=== PATIENT | male | born 1960 | race African-American/Black ===

== ENCOUNTER 2018-10-07 17:57 | Emergency (ER) | payer BC, OTHER ==
--- NOTE | 2018-10-07 18:06 | PDOC ---
Rapid Medical Evaluation Chief Complaint: Hematuria Time Seen by Provider: 10/07/18 18:05 Medical Evaluation: 10/07/18 18:05 I have performed a brief in-person evaluation of this patient. The patient presents with a chief complaint of: Hematuria and right flank pain. Pertinent physical exam findings: Alert and oriented, no distress. I have ordered the following: UA/culture The patient will proceed to the ED for further evaluation. Discharge Disposition - Diagnosis Hematuria Qualifiers: Hematuria type: gross Qualified Code(s): R31.0 - Gross hematuria - Discharge Dispostion Condition at time of disposition: Stable - Referrals - Patient Instructions - Post Discharge Activity
[2018-10-07 18:07] VITALS: BP 131/71; PULSE 89; TEMP 98.4; BMI 30.1
--- NOTE | 2018-10-07 19:45 | PDOC ---
History of Present Illness - General Chief Complaint: Hematuria Stated Complaint: HEMATURIA Time Seen by Provider: 10/07/18 18:05 History Source: Patient Exam Limitations: No Limitations - History of Present Illness Initial Comments: 58 yo M with a hx of HTN and DM presents to the emergency department with hemturia that has been ongoing since yesterday. Per the patient, he was lifting sheet rock up a stair case, made an unexpected adjustment, and felt a "pinch" in his lower right back and had a sudden urge to urinate. When he urinated, there was bright red blood streaks without clots. He had normal urinations episodes since then until this afternoon when he felt a burning sensation followed by hematuria red blood. Currently, he has right lower back pain that is sharp in nature, 7/10, non radiating, and worsens with coughing. Per the patient, he recently took antibiotics (unknown kind) for an URI and subsequently developed a "yeast" infection on his penis that he took antibiotics for 7 days (finished 4 days ago). Denies pain, persistence of infection, and erythema on the penis. Denies the following: fever, chills, nausea, vomiting, chest pain, SOB, abdominal pain, dysuria, diarrhea, hematochezia, and leg pain/swelling. Shx: Left hernia repair Meds: Metformin, aspirin Allergies: NKDA Social: Endorses tobacco use. Denies alcohol and substance abuse. Past History - Past Medical History Allergies/Adverse Reactions: Allergies Allergy/AdvReac Type Severity Reaction Status Date / Time No Known Allergies Allergy Verified 10/07/18 18:07 Home Medications: Ambulatory Orders Nicotine [Nicotine Patch 21 mg/24 hr] 1 each TD DAILY #14 patch.td24 10/07/18 levoFLOXacin [Levaquin] 750 mg PO DAILY #7 tab 10/07/18 COPD: No Diabetes: Yes - Surgical History Gastric Stapling: No Lung Surgery: No - Immunization History Immunization Up to Date: No - Suicide/Smoking/Psychosocial Hx Smoking History: Never smoked Have you smoked in the past 12 months: No Information on smoking cessation initiated: No Hx Alcohol Use: No Drug/Substance Use Hx: No *Physical Exam - Vital Signs Last Vital Signs Temp Pulse Resp BP Pulse Ox 98.4 F 89 18 131/71 100 10/07/18 18:04 10/07/18 18:04 10/07/18 18:04 10/07/18 18:04 10/07/18 18:04 Moderate Sedation - Procedure Monitoring Vital Signs: Procedure Monitoring Vital Signs Temperature 98.4 F 10/07/18 18:04 Pulse Rate 89 10/07/18 18:04 Respiratory Rate 18 10/07/18 18:04 Blood Pressure 131/71 10/07/18 18:04 O2 Sat by Pulse Oximetry (%) 100 10/07/18 18:04 ED Treatment Course - LABORATORY CBC & Chemistry Diagram: 10/07/18 08:12 10/07/18 08:12 *DC/Admit/Observation/Transfer Diagnosis at time of Disposition: Hematuria Qualifiers: Hematuria type: gross Qualified Code(s): R31.0 - Gross hematuria - Discharge Dispostion Condition at time of disposition: Stable - Prescriptions Prescriptions: levoFLOXacin [Levaquin] 750 mg PO DAILY #7 tab Nicotine [Nicotine Patch 21 mg/24 hr] 1 each TD DAILY #14 patch.td24 - Referrals Referrals: ON STAFF,NOT [Primary Care Provider] - [facility] [place] [facility] [Provider Group] Stephen Nguyen MD [Staff Physician] - Vianey Daly MD [Staff Physician] - - Patient Instructions Printed Discharge Instructions: DI for Urinary Tract Infection (UTI) Additional Instructions: you were seen in the emergency department for your blood in the urine. your urine showed an infection and CT showed an infection near the kidney as well as the seminal vesicles. we spoke to Dr. Nguyen who recommends you take the levaquin antibiotics and follow up in his office within 72 hours after discharge. please follow up with your primary medical doctor within 1 week after discharge. please take your medications as prescribed. please return to the emergency department if you have worsening symptoms or new concerning symptoms such as fever, nausea and vomiting, and more amount of blood in the urine. thank you. - Post Discharge Activity Forms/Work/School Notes: Back to Work
[2018-10-07 19:54] LABS: URINE APPEARANCE CLEAR; URINE BILIRUBIN NEGATIVE (<2.0 mg/dL); URINE COLOR LTYELLOW; URINE GLUCOSE (UA) 2+ (NEGATIVE); URINE KETONE NEGATIVE (NEGATIVE); URINE LEUK ESTERASE 2+ (NEGATIVE); URINE NITRITE NEGATIVE (NEGATIVE); URINE PROTEIN 1+ (NEGATIVE)
[2018-10-07 20:00] LABS: URINE MUCUS RARE
--- NOTE | 2018-10-07 20:15 | PDOC ---
Attending Attestation - HPI HPI: 10/07/18 20:38 Patient is a 58 year old male with a significant past medical history of HTN and DM, who presents to the ED with complaints of hematuria that began yesterday afternoon. Patient reports lifting sheetrock yesterday afternoon while turning, stating he felt a pinching sensation in his lower back, followed by a urge to urinate. He reports experiencing bright red blood streaks within his urine, but denies a presence of clots. Patient reports urinating multiple times since with no episodes of hematuria since. He reports experiencing a sudden burning sensation followed an episode of hematuria this evening, prompting him to come into the ED for further evaluation. Patient reports currently experiencing right lower back pain that he states is a sharp non radiating 7/10 pain. Denies chest pain, Sob. Denies nausea, vomiting. Denies fevers, chills. Denies constipation, diarrhea. Denies trauma to affected area, loss of consciousness. Denies contact with sick individuals, out of state travelling. Denies any other symptoms. Allergies: None Social history: current smoker. No alcohol. No illicit drugs. Surgical: Left hernia repair PMD: not on staff. - Physicial Exam PE: 10/07/18 20:38 GENERAL: Awake, alert, and fully oriented, in no acute distress HEAD: No signs of trauma EYES: PERRLA, EOMI, sclera anicteric, conjunctiva clear ENT: Auricles normal inspection, hearing grossly normal, nares patent, oropharynx clear without exudates. Moist mucosa NECK: Normal ROM, supple, no lymphadenopathy, JVD, or masses LUNGS: Breath sounds equal, clear to auscultation bilaterally. No wheezes, and no crackles HEART: Regular rate and rhythm, normal S1 and S2, no murmurs, rubs or gallops ABDOMEN: Soft, nontender, normoactive bowel sounds. No guarding, no rebound. No masses EXTREMITIES: Normal range of motion, no edema. No clubbing or cyanosis. No cords, erythema, or tenderness NEUROLOGICAL: Cranial nerves II through XII grossly intact. Normal speech, normal gait SKIN: Warm, Dry, normal turgor, no rashes or lesions noted. <Elmo Lynch - Last Filed: 10/07/18 20:38> - Resident Resident Name: Michael Joshi - ED Attending Attestation I have performed the following: I have examined & evaluated the patient, The case was reviewed & discussed with the resident, I agree w/resident's findings & plan, Exceptions are as noted - Critical Care Time Total Critical Care Time: 35 Critical Care Statement: The care of this patient involved high complexity decision making to prevent further life threatening deterioration of the patient 's condition and/or to evaluate & treat vital organ system(s) failure or risk of failure. - Medical Decision Making 10/07/18 20:15 I, Dr. Romy Landers, DO, attest that this document has been prepared under my direction and personally reviewed by me in its entirety. I further attest, that it accurately reflects all work, treatment, procedures and medical decision -making performed by me. 10/07/18 20:43 a/p: 58yo male with 2 episodes of hematuria today after carrying sheet rock up the stairs -no flank pain -no dysuria -no clots -no hesitancy or difficulty passing his urine -will send labs, ua, ct abd/pelvis -poss renal stone that moved -will monitor and reassess 10/07/18 22:26 resident discussed the case with Dr. Locke recommends levaquin and follow up in the office 10/07/18 22:50 pt feeling better and requesting to go home <Romy Landers - Last Filed: 10/07/18 22:51>
[2018-10-07 20:17] LABS: BASO % 1.5 % (0-2.0); EOS % 2.4 % (0-4.5); HEMATOCRIT 36.5 % (35.4-49); HEMOGLOBIN 12.8 GM/dL (11.7-16.9); LYMPH % 27.3 % (8-40); MCH 30.1 pg (25.7-33.7); MCHC 34.9 g/dl (32.0-35.9); MEAN PLT VOLUME 7.6 fl (7.5-11.1); MONO % 7.7 % (3.8-10.2); NEUT % 61.1 % (42.8-82.8); PLATELET COUNT 303 K/MM3 (134-434); RBC 4.24 M/mm3 (4.00-5.60); RDW 14.2 % (11.9-15.9); WHITE BLOOD COUNT 9.7 K/mm3 (4.0-10.0)
[2018-10-07 22:28] LABS: ALBUMIN 3.5 g/dl (3.4-5.0); ALK PHOS 98 U/L (45-117); ANION GAP 10 MMOL/L (8-16); BILIRUBIN,TOTAL 0.3 mg/dL (0.2-1); BLOOD UREA NITROGEN 23 mg/dL (7-18); CALCIUM 8.9 mg/dL (8.5-10.1); CHLORIDE 108 mmol/L (98-107); CO2 25 mmol/L (21-32); POTASSIUM 4.3 mmol/L (3.5-5.1); SGOT/AST 15 U/L (15-37); SGPT/ALT 25 U/L (13-61); SODIUM 143 mmol/L (136-145)
[2018-10-07 22:31] LABS: GLUCOSE,RANDOM 306 mg/dL (74-106)
[2018-10-07] MEDS ORDERED: levoFLOXacin 750 MG TABLET PO ONE (23:04)
[2018-10-08] MEDS ORDERED: levoFLOXacin 750 MG TABLET PO ONE (22:49)
== END 2018-10-07 23:15 | disposition home or self-care (01) ==
LOC: JER 17:57
DX: N39.0 Urinary tract infection, site not specified (principal); R31.0 Gross hematuria
CPT/HCPCS: 36415; 74176-TC; 80053; 81003; 81015; 85025; 87086; 87186; 99281-25

== ENCOUNTER 2020-08-06 13:53 | Observation (INO) | payer OTHER ==
[2020-08-06] MEDS ORDERED: VANCOMYCIN 1 GM in D5W (PRE-DOCKED) 1,000 MG/250 ML IVPB ONE (16:10)
[2020-08-06] MEDS ORDERED: PIPERACILLIN/TAZOB 4.5 GM 4.5 GM in DEXTROSE 5%-WATER 100 ML IVPB ONE (16:10)
[2020-08-06] MEDS ORDERED: DIPHTH,PERTUSS(ACELL),TET 0.5 ML DISP.SYRIN IM ONE ×2 (16:22→17:36)
[2020-08-06 16:58] LABS: BASO % 0.4 % (0-2.0); EOS % 4.3 % (0-4.5); HEMATOCRIT 36.8 % (35.4-49); HEMOGLOBIN 12.6 GM/dL (11.7-16.9); LYMPH % 26.4 % (8-40); MCH 30.8 pg (25.7-33.7); MCHC 34.3 g/dl (32.0-35.9); MEAN PLT VOLUME 7.7 fl (7.5-11.1); MONO % 10.4 % (3.8-10.2); NEUT % 58.5 % (42.8-82.8); PLATELET COUNT 250 K/MM3 (134-434); RBC 4.08 M/mm3 (4.00-5.60); RDW 13.7 % (11.9-15.9); WHITE BLOOD COUNT 7.9 K/mm3 (4.0-10.0)
[2020-08-06 17:16] LABS: POTASSIUM 4.7 mmol/L (3.5-5.1)
[2020-08-06 17:18] LABS: CALCIUM 9.1 mg/dL (8.5-10.1)
[2020-08-06 17:19] LABS: ALBUMIN 3.7 g/dl (3.4-5.0); BLOOD UREA NITROGEN 22.1 mg/dL (7-18)
[2020-08-06 17:22] LABS: CREATININE 1.2 mg/dL (0.55-1.3)
[2020-08-06 17:23] LABS: BILIRUBIN,TOTAL 0.6 mg/dL (0.2-1); TOT PROT 7.4 g/dl (6.4-8.2)
[2020-08-06] MEDS ORDERED: PIPERACILLIN/TAZOB 4.5 GM 4.5 GM/100 ML BAG IVPB ONE (17:35)
[2020-08-06] MEDS ORDERED: VANCOMYCIN 1 GRAM (PRE-DOCKED) 1,000 MG/250 ML BAG IVPB ONE (17:35)
[2020-08-06] MEDS ORDERED: SODIUM CHLORIDE 0.9% 500 ML INFUS.BAG IV ONE (18:12)
[2020-08-06 21:39] LABS: ERYTHROCYTE SEDIMENTATION RATE 34 mm/hr (0-20)
[2020-08-06] MEDS ORDERED: INSULIN SLIDING SCALE (NOVOLOG) 1 VIAL SQ SCH (22:00)
[2020-08-06 23:43] VITALS: BP 132/77; PULSE 82; TEMP 98.2; BMI 33.3
== END 2020-08-07 00:38 | disposition home or self-care (01) ==
LOC: JER 13:53 → INTOOBSV 18:29 → JERBED 18:29 → J5S 20:41
PROVIDERS: ADMIT Internal Medicine; ATTEND Internal Medicine
PROC: 3E0234Z Introduction of Serum, Toxoid and Vaccine into Muscle, Percutaneous Approach (ICD-10-PCS; principal; 2020-08-06)
PROC: 3E013VG Introduction of Insulin into Subcutaneous Tissue, Percutaneous Approach (ICD-10-PCS; 2020-08-06)
PROC: 3E03329 Introduction of Other Anti-infective into Peripheral Vein, Percutaneous Approach (ICD-10-PCS; 2020-08-06)
PROC: 3E0337Z Introduction of Electrolytic and Water Balance Substance into Peripheral Vein, Percutaneous Approach (ICD-10-PCS; 2020-08-06)
DX: L08.9 Local infection of the skin and subcutaneous tissue, unspecified (principal); E13.42 Other specified diabetes mellitus with diabetic polyneuropathy; I10 Essential (primary) hypertension; M79.674 Pain in right toe(s); E66.9 Obesity, unspecified; Z68.33 Body mass index [BMI] 33.0-33.9, adult
CPT/HCPCS: 36415; 71046-TC-FY; 73630-TC-RT-FY; 73700-TC-RT; 80053; 82962; 85025; 85651; 86140; 87040; 87070; 87186; 87205; 90471; 90715; 93005; 93010; 96361; 96372; 96374; 99285-25; C9803; G0378; U0003

== ENCOUNTER 2022-02-25 13:33 | Inpatient (IN) | payer OTHER ==
[2022-02-25 13:41] VITALS: BMI 29.0
[2022-02-25 16:19] LABS: BASO % 0.5 % (0-2.0); EOS % 2.9 % (0-4.5); HEMATOCRIT 39.3 % (35.4-49); HEMOGLOBIN 13.3 GM/dL (11.7-16.9); LYMPH % 20.3 % (8-40); MCH 30.3 pg (25.7-33.7); MEAN CELL VOLUME 89.3 fl (80-96); MEAN PLT VOLUME 7.4 fl (7.5-11.1); MONO % 9.4 % (3.8-10.2); NEUT % 66.9 % (42.8-82.8); PLATELET COUNT 258 10^3/uL (134-434); RBC 4.39 M/mm3 (4.00-5.60); RDW 14.5 % (11.9-15.9); WHITE BLOOD COUNT 7.5 K/mm3 (4.0-10.0)
[2022-02-25] MEDS ORDERED: VANCOMYCIN 1 GM in D5W (PRE-DOCKED) 1,000 MG/250 ML IVPB ONE (16:35)
[2022-02-25] MEDS ORDERED: PIPERACILLIN/TAZOB 4.5 GM 4.5 GM in DEXTROSE 5%-WATER 100 ML IVPB ONE (16:36)
[2022-02-25 16:38] LABS: CALCIUM 8.9 mg/dL (8.5-10.1)
[2022-02-25 16:39] LABS: ALBUMIN 3.8 g/dl (3.4-5.0); BLOOD UREA NITROGEN 33.7 mg/dL (7-18)
[2022-02-25 16:42] LABS: CREATININE 1.7 mg/dL (0.55-1.3)
[2022-02-25 16:43] LABS: BILIRUBIN,TOTAL 0.4 mg/dL (0.2-1); TOT PROT 7.4 g/dl (6.4-8.2)
[2022-02-25] MEDS ORDERED: PIPERACILLIN/TAZOB 4.5 GM 4.5 GM/100 ML BAG IVPB ONE (16:43)
[2022-02-25] MEDS ORDERED: VANCOMYCIN 1 GRAM (PRE-DOCKED) 1,000 MG/250 ML BAG IVPB ONE (16:43)
[2022-02-25] MEDS ORDERED: SODIUM CHLORIDE 0.9% 500 ML INFUS.BAG IV ONE (16:54)
[2022-02-25 17:42] LABS: ERYTHROCYTE SEDIMENTATION RATE 22 mm/hr (0-20)
[2022-02-25] MEDS: SODIUM CHLORIDE 1,000 ML IV SCH (19:15)
[2022-02-25] MEDS ORDERED: HEPARIN NA (PORCINE) 5,000 UNITS/ML 1ML VIAL ONE (22:01)
[2022-02-25] MEDS: DOXYCYCLINE INJECTION 100 MG in DEXTROSE 5%-WATER 100 ML IVPB SCH (22:30)
[2022-02-25] MEDS: HEPARIN NA (PORCINE) 5,000 UNITS/ML 1ML VIAL SQ SCH (22:30)
[2022-02-25] MEDS: INSULIN (LEVEMIR) 100 UNITS/ML UNITS SQ SCH (22:30)
[2022-02-25] MEDS: INSULIN SLIDING SCALE (NOVOLOG) 1 VIAL SQ SCH (22:30)
[2022-02-26] MEDS ORDERED: PIPERACILLIN/TAZOB 3.375 GM 3.375 GM/50 ML BAG IVPB ONE (06:29)
[2022-02-26] MEDS: PIPERACILLIN/TAZOB 3.375 GM 3.375 GM in DEXTROSE 5%-WATER - 50 ML IVPB SCH ×3 (06:32→18:47)
[2022-02-26] MEDS ORDERED: HEPARIN NA (PORCINE) 5,000 UNITS/ML 1ML VIAL ONE (06:35)
[2022-02-26 06:50] LABS: BASO % 0.4 % (0-2.0); EOS % 3.9 % (0-4.5); HEMATOCRIT 39.6 % (35.4-49); HEMOGLOBIN 13.5 GM/dL (11.7-16.9); INR 1.02 (0.83-1.09); LYMPH % 25.1 % (8-40); MCH 30.3 pg (25.7-33.7); MCHC 34.2 g/dl (32.0-35.9); MEAN CELL VOLUME 88.8 fl (80-96); MEAN PLT VOLUME 7.3 fl (7.5-11.1); MONO % 8.9 % (3.8-10.2); NEUT % 61.7 % (42.8-82.8); PLATELET COUNT 249 10^3/uL (134-434); PROTHROMBIN TIME (PATIENT) 11.7 SEC (9.7-13.0); RBC 4.46 M/mm3 (4.00-5.60); RDW 14.4 % (11.9-15.9); WHITE BLOOD COUNT 7.5 K/mm3 (4.0-10.0)
[2022-02-26 06:53] LABS: ACTIVATED PTT 36.1 SECONDS (25.2-36.5)
[2022-02-26] MEDS: HEPARIN NA (PORCINE) 5,000 UNITS/ML 1ML VIAL SQ SCH ×3 (06:59→23:16)
[2022-02-26 07:15] LABS: ALBUMIN 3.4 g/dl (3.4-5.0); BLOOD UREA NITROGEN 26.6 mg/dL (7-18); MAGNESIUM 2.5 mg/dL (1.8-2.4)
[2022-02-26 07:18] LABS: CREATININE 1.2 mg/dL (0.55-1.3); PHOSPHOROUS 3.7 mg/dL (2.5-4.9)
[2022-02-26 07:20] LABS: BILIRUBIN,TOTAL 0.6 mg/dL (0.2-1); TOT PROT 6.9 g/dl (6.4-8.2)
[2022-02-26] MEDS: INSULIN SLIDING SCALE (NOVOLOG) 1 VIAL SQ SCH ×3 (08:18→17:08)
[2022-02-26] MEDS ORDERED: INSULIN (LEVEMIR) 100 UNITS/ML UNITS SQ ONE (08:23)
[2022-02-26 08:35] LABS: PH,URINE 5.5 (5.0-8.0); URINE APPEARANCE CLEAR; URINE BILIRUBIN NEGATIVE (NEGATIVE); URINE COLOR YELLOW; URINE GLUCOSE (UA) 3+ (NEGATIVE); URINE KETONE NEGATIVE (NEGATIVE); URINE LEUK ESTERASE NEGATIVE (NEGATIVE); URINE NITRITE NEGATIVE (NEGATIVE); URINE PROTEIN TRACE (NEGATIVE); URINE UROBILINOGEN 0.2 mg/dL (0.2-1.0)
[2022-02-26] MEDS: INSULIN (LEVEMIR) 100 UNITS/ML UNITS SQ SCH (09:30)
[2022-02-26] MEDS ORDERED: DOXYCYCLINE HYCLATE 100 MG VIAL ONE ×2 (10:19→23:09)
[2022-02-26] MEDS ORDERED: INSULIN (NOVOLOG) ASPART 100 UNITS/ML 10ML VIAL ONE (10:19)
[2022-02-26] MEDS ORDERED: DEXTROSE 5%-WATER 100 ML IVPB ONE (10:19)
[2022-02-26] MEDS: SODIUM CHLORIDE 1,000 ML IV SCH ×2 (10:30→18:47)
[2022-02-26] MEDS: DOXYCYCLINE INJECTION 100 MG in DEXTROSE 5%-WATER 100 ML IVPB SCH ×2 (10:31→23:16)
[2022-02-26] MEDS ORDERED: PIPERACILLIN/TAZOBACTAM 3.375 GM VIAL IVPB ONE (17:01)
[2022-02-26] MEDS ORDERED: DEXTROSE 5%-WATER - 50 ML IVPB ONE (17:01)
[2022-02-27] MEDS ORDERED: DEXTROSE 5%-WATER - 50 ML IVPB ONE ×3 (01:24→16:22)
[2022-02-27] MEDS ORDERED: PIPERACILLIN/TAZOBACTAM 3.375 GM VIAL IVPB ONE ×3 (01:24→16:22)
[2022-02-27] MEDS: PIPERACILLIN/TAZOB 3.375 GM 3.375 GM in DEXTROSE 5%-WATER - 50 ML IVPB SCH ×3 (01:39→17:24)
[2022-02-27] MEDS ORDERED: PIPERACILLIN/TAZOB 3.375 GM 3.375 GM in DEXTROSE 5%-WATER - 50 ML IVPB SCH (02:00)
[2022-02-27] MEDS: INSULIN (LEVEMIR) 100 UNITS/ML UNITS SQ SCH ×2 (06:18→21:28)
[2022-02-27] MEDS: INSULIN SLIDING SCALE (NOVOLOG) 1 VIAL SQ SCH ×4 (06:18→21:28)
[2022-02-27] MEDS: HEPARIN NA (PORCINE) 5,000 UNITS/ML 1ML VIAL SQ SCH ×3 (06:19→21:28)
[2022-02-27] MEDS: SODIUM CHLORIDE 1,000 ML IV SCH (08:06)
[2022-02-27 08:27] LABS: BASO % 0.5 % (0-2.0); EOS % 3.5 % (0-4.5); HEMATOCRIT 42.2 % (35.4-49); HEMOGLOBIN 14.3 GM/dL (11.7-16.9); LYMPH % 20.4 % (8-40); MCHC 33.9 g/dl (32.0-35.9); MEAN CELL VOLUME 88.7 fl (80-96); MEAN PLT VOLUME 7.1 fl (7.5-11.1); MONO % 8.7 % (3.8-10.2); NEUT % 66.9 % (42.8-82.8); PLATELET COUNT 267 10^3/uL (134-434); RBC 4.76 M/mm3 (4.00-5.60); RDW 14.2 % (11.9-15.9); WHITE BLOOD COUNT 7.2 K/mm3 (4.0-10.0)
[2022-02-27 08:48] LABS: CALCIUM 9.1 mg/dL (8.5-10.1)
[2022-02-27 08:49] LABS: BLOOD UREA NITROGEN 20.2 mg/dL (7-18)
[2022-02-27 08:52] LABS: CREATININE 1.1 mg/dL (0.55-1.3)
[2022-02-27] MEDS ORDERED: DEXTROSE 5%-WATER 100 ML IVPB ONE (10:15)
[2022-02-27] MEDS ORDERED: DOXYCYCLINE HYCLATE 100 MG VIAL ONE ×2 (10:15→21:21)
[2022-02-27] MEDS: DOXYCYCLINE INJECTION 100 MG in DEXTROSE 5%-WATER 100 ML IVPB SCH ×2 (10:30→21:28)
[2022-02-28] MEDS ORDERED: PIPERACILLIN/TAZOBACTAM 3.375 GM VIAL IVPB ONE ×2 (00:43→09:52)
[2022-02-28] MEDS ORDERED: DEXTROSE 5%-WATER - 50 ML IVPB ONE ×2 (00:43→09:52)
[2022-02-28] MEDS: PIPERACILLIN/TAZOB 3.375 GM 3.375 GM in DEXTROSE 5%-WATER - 50 ML IVPB SCH ×2 (01:04→09:58)
[2022-02-28] MEDS: HEPARIN NA (PORCINE) 5,000 UNITS/ML 1ML VIAL SQ SCH ×3 (06:15→22:23)
[2022-02-28] MEDS: INSULIN (LEVEMIR) 100 UNITS/ML UNITS SQ SCH ×2 (06:24→22:23)
[2022-02-28] MEDS: INSULIN SLIDING SCALE (NOVOLOG) 1 VIAL SQ SCH ×4 (06:24→22:23)
[2022-02-28] MEDS: LISINOPRIL 5 MG TABLET PO SCH (09:58)
[2022-02-28] MEDS ORDERED: DOXYCYCLINE HYCLATE 100 MG VIAL ONE (10:45)
[2022-02-28] MEDS ORDERED: DEXTROSE 5%-WATER 100 ML IVPB ONE (10:45)
[2022-02-28] MEDS: DOXYCYCLINE INJECTION 100 MG in DEXTROSE 5%-WATER 100 ML IVPB SCH (10:48)
[2022-02-28] MEDS ORDERED: SODIUM CHLORIDE 0.45% 1,000 ML IV SCH (13:45)
[2022-02-28] MEDS: CEFTRIAXONE 2 GM in DEXTROSE 5%-WATER 2 GM/50 ML BAG IVPB SCH (14:28)
[2022-02-28] MEDS ORDERED: INSULIN (NOVOLOG) ASPART 100 UNITS/ML 10ML VIAL ONE (22:19)
[2022-03-01] MEDS: INSULIN SLIDING SCALE (NOVOLOG) 1 VIAL SQ SCH ×5 (07:00→21:05)
[2022-03-01] MEDS: INSULIN (LEVEMIR) 100 UNITS/ML UNITS SQ SCH ×3 (07:00→21:03)
[2022-03-01] MEDS: HEPARIN NA (PORCINE) 5,000 UNITS/ML 1ML VIAL SQ SCH ×3 (07:00→21:02)
[2022-03-01 10:34] LABS: BLOOD UREA NITROGEN 18.2 mg/dL (7-18); CALCIUM 9.2 mg/dL (8.5-10.1)
[2022-03-01] MEDS ORDERED: CEFTRIAXONE 2 GM in DEXTROSE 5%-WATER 2 GM/100 ML BAG IVPB SCH (10:55)
[2022-03-01] MEDS ORDERED: DEXTROSE 5%-WATER 100 ML IVPB ONE (10:58)
[2022-03-01] MEDS: LISINOPRIL 5 MG TABLET PO SCH (10:59)
[2022-03-01] MEDS: CEFTRIAXONE 2 GM in DEXTROSE 5%-WATER 2 GM/100 ML BAG IVPB SCH (11:13)
[2022-03-01] MEDS: CEFTRIAXONE 2 GM in DEXTROSE 5%-WATER 2 GM/50 ML BAG IVPB SCH (12:16)
[2022-03-01] MEDS ORDERED: INSULIN (NOVOLOG) ASPART 100 UNITS/ML 10ML VIAL ONE (20:57)
[2022-03-02] MEDS: INSULIN (LEVEMIR) 100 UNITS/ML UNITS SQ SCH ×2 (06:01→21:50)
[2022-03-02] MEDS: HEPARIN NA (PORCINE) 5,000 UNITS/ML 1ML VIAL SQ SCH ×3 (06:01→21:51)
[2022-03-02] MEDS: INSULIN SLIDING SCALE (NOVOLOG) 1 VIAL SQ SCH ×4 (06:02→21:52)
[2022-03-02] MEDS ORDERED: DEXTROSE 5%-WATER 100 ML IVPB ONE (09:39)
[2022-03-02] MEDS: CEFTRIAXONE 2 GM in DEXTROSE 5%-WATER 2 GM/100 ML BAG IVPB SCH (09:55)
[2022-03-02] MEDS: LISINOPRIL 5 MG TABLET PO SCH (09:55)
[2022-03-03] MEDS: HEPARIN NA (PORCINE) 5,000 UNITS/ML 1ML VIAL SQ SCH ×3 (06:54→21:33)
[2022-03-03] MEDS: INSULIN SLIDING SCALE (NOVOLOG) 1 VIAL SQ SCH ×4 (06:54→21:34)
[2022-03-03] MEDS: INSULIN (LEVEMIR) 100 UNITS/ML UNITS SQ SCH ×2 (06:55→21:33)
[2022-03-03] MEDS ORDERED: DEXTROSE 5%-WATER 100 ML IVPB ONE (09:25)
[2022-03-03] MEDS: CEFTRIAXONE 2 GM in DEXTROSE 5%-WATER 2 GM/100 ML BAG IVPB SCH (09:31)
[2022-03-03] MEDS: LISINOPRIL 5 MG TABLET PO SCH (09:33)
[2022-03-03 13:05] LABS: BASO % 0.6 % (0-2.0); EOS % 3.6 % (0-4.5); HEMATOCRIT 43.7 % (35.4-49); HEMOGLOBIN 14.5 GM/dL (11.7-16.9); LYMPH % 23.1 % (8-40); MCH 29.5 pg (25.7-33.7); MCHC 33.3 g/dl (32.0-35.9); MEAN CELL VOLUME 88.6 fl (80-96); MEAN PLT VOLUME 6.8 fl (7.5-11.1); MONO % 9.2 % (3.8-10.2); NEUT % 63.5 % (42.8-82.8); PLATELET COUNT 285 10^3/uL (134-434); RBC 4.93 M/mm3 (4.00-5.60); RDW 14.6 % (11.9-15.9); WHITE BLOOD COUNT 8.7 K/mm3 (4.0-10.0)
[2022-03-03 13:27] LABS: INR 1.02 (0.83-1.09); PROTHROMBIN TIME (PATIENT) 11.7 SEC (9.7-13.0)
[2022-03-04] MEDS: HEPARIN NA (PORCINE) 5,000 UNITS/ML 1ML VIAL SQ SCH ×2 (05:49→14:35)
[2022-03-04] MEDS: INSULIN SLIDING SCALE (NOVOLOG) 1 VIAL SQ SCH ×2 (06:49→11:50)
[2022-03-04] MEDS: INSULIN (LEVEMIR) 100 UNITS/ML UNITS SQ SCH (06:49)
[2022-03-04] MEDS ORDERED: INSULIN (NOVOLOG) ASPART 100 UNITS/ML 10ML VIAL ONE (07:20)
[2022-03-04] MEDS ORDERED: DEXTROSE 5%-WATER 100 ML IVPB ONE (09:10)
[2022-03-04] MEDS: CEFTRIAXONE 2 GM in DEXTROSE 5%-WATER 2 GM/100 ML BAG IVPB SCH (09:23)
[2022-03-04] MEDS: LISINOPRIL 5 MG TABLET PO SCH (09:24)
[2022-03-04 15:34] VITALS: BP 116/57; PULSE 95; TEMP 98.1
[2022-03-05] MEDS ORDERED: CEFTRIAXONE 2 GM in DEXTROSE 5%-WATER 100 ML IVPB SCH
== END 2022-03-04 15:28 | disposition home or self-care (01) | DRG 344 ==
LOC: JER 13:33 → JERBED 16:58 → J6S 02-26 09:30
PROVIDERS: ADMIT Internal Medicine; ATTEND Nurse Practitioner Acute Care
PROC: 02HV33Z Insertion of Infusion Device into Superior Vena Cava, Percutaneous Approach (ICD-10-PCS; principal; 2022-03-03)
PROC: B518ZZA Fluoroscopy of Superior Vena Cava, Guidance (ICD-10-PCS; 2022-03-03)
DX: E11.621 Type 2 diabetes mellitus with foot ulcer (principal); E11.69 Type 2 diabetes mellitus with other specified complication; I10 Essential (primary) hypertension; E78.5 Hyperlipidemia, unspecified; F17.200 Nicotine dependence, unspecified, uncomplicated; M86.671 Other chronic osteomyelitis, right ankle and foot; E11.628 Type 2 diabetes mellitus with other skin complications; L08.9 Local infection of the skin and subcutaneous tissue, unspecified; M79.672 Pain in left foot; E11.40 Type 2 diabetes mellitus with diabetic neuropathy, unspecified; E11.00 Type 2 diabetes mellitus with hyperosmolarity without nonketotic hyperglycemic-hyperosmolar coma (NKHHC); E11.65 Type 2 diabetes mellitus with hyperglycemia; L97.518 Non-pressure chronic ulcer of other part of right foot with other specified severity; N17.9 Acute kidney failure, unspecified; B95.1 Streptococcus, group B, as the cause of diseases classified elsewhere
CPT/HCPCS: 0241U-QW; 36415; 36569; 73630-TC-RT-FY; 73718-TC-RT; 76775-TC; 77001-TC-FY; 80048; 80053; 81003; 82570; 82962; 83036; 83735; 84100; 84156; 84300; 85025; 85610; 85651; 85730; 86140; 87040; 87070; 87186; 87205; 93005; 93010; 93922; 93925-TC; 99285-25; C1751; J1644

== ENCOUNTER 2022-03-05 15:36 | Day surgery (SDC) | payer OTHER ==
[2022-03-05] MEDS ORDERED: SODIUM CHLORIDE 100 ML IVPB ONE (16:05)
[2022-03-05] MEDS: CEFTRIAXONE 2 GM in SODIUM CHLORIDE 100 ML IVPB ONE ×2 (16:26→17:03)
[2022-03-05 17:42] VITALS: BP 98/55; PULSE 86; TEMP 98.5
== END 2022-03-05 17:05 | disposition home or self-care (01) ==
LOC: FINFUSION 15:36 → FM/S 15:40 → FINFUSION 17:05
PROVIDERS: ATTEND Internal Medicine Infectious Disease
DX: M86.9 Osteomyelitis, unspecified (principal)
CPT/HCPCS: 96365

== ENCOUNTER 2022-03-06 15:51 | Day surgery (SDC) | payer OTHER ==
[~2022-03-06 15:51] MED LIST: CEFTRIAXONE 2 GM in SODIUM CHLORIDE 100 ML IVPB ONE
[2022-03-06] MEDS ORDERED: SODIUM CHLORIDE 100 ML IVPB ONE (16:21)
[2022-03-06] MEDS ORDERED: CEFTRIAXONE 2 GM in SODIUM CHLORIDE 100 ML IVPB ONE (17:00)
[2022-03-06 17:19] VITALS: BP 117/63; PULSE 84; TEMP 99.5
== END 2022-03-06 17:15 | disposition home or self-care (01) ==
LOC: FINFUSION 15:51 → FM/S 15:55 → FINFUSION 17:15
PROVIDERS: ATTEND Internal Medicine Infectious Disease
DX: M86.9 Osteomyelitis, unspecified (principal)
CPT/HCPCS: 96365

== ENCOUNTER 2022-03-07 16:04 | Day surgery (SDC) | payer OTHER ==
[2022-03-07] MEDS ORDERED: SODIUM CHLORIDE 100 ML IVPB ONE (16:15)
[2022-03-07 16:32] VITALS: TEMP 99
[2022-03-07 16:52] VITALS: BP 102/50; PULSE 90
[2022-03-07] MEDS ORDERED: CEFTRIAXONE 2 GM in SODIUM CHLORIDE 100 ML IVPB ONE (17:00)
== END 2022-03-07 17:30 | disposition home or self-care (01) ==
LOC: FINFUSION 16:04 → FM/S 16:05 → FINFUSION 17:30
PROVIDERS: ATTEND Internal Medicine Infectious Disease
DX: M86.9 Osteomyelitis, unspecified (principal)
CPT/HCPCS: 96365

== ENCOUNTER 2022-03-08 16:02 | Day surgery (SDC) | payer OTHER ==
[2022-03-08] MEDS ORDERED: DEXTROSE 5%-WATER 100 ML IVPB ONE (16:34)
[2022-03-08] MEDS ORDERED: CEFTRIAXONE 2 GM in DEXTROSE 5%-WATER 100 ML IVPB ONE (16:45)
[2022-03-08 17:23] VITALS: BP 117/68; PULSE 90; TEMP 98.2
== END 2022-03-08 17:24 | disposition home or self-care (01) ==
LOC: FINFUSION 16:02 → FM/S 16:07 → FINFUSION 17:24
PROVIDERS: ATTEND Internal Medicine Infectious Disease
DX: M86.9 Osteomyelitis, unspecified (principal)
CPT/HCPCS: 96365

== ENCOUNTER 2022-03-09 15:25 | Day surgery (SDC) | payer OTHER ==
[2022-03-09] MEDS ORDERED: DEXTROSE 5%-WATER 100 ML IVPB ONE (15:42)
[2022-03-09] MEDS ORDERED: CEFTRIAXONE 2 GM in DEXTROSE 5%-WATER 100 ML IVPB ONE (15:45)
[2022-03-09 17:21] VITALS: BP 105/55; PULSE 89; TEMP 97
== END 2022-03-09 16:35 | disposition home or self-care (01) ==
LOC: FINFUSION 15:25 → FM/S 15:26 → FINFUSION 16:35
PROVIDERS: ATTEND Internal Medicine Infectious Disease
DX: M86.9 Osteomyelitis, unspecified (principal)
CPT/HCPCS: 96365

== ENCOUNTER 2022-03-10 15:52 | Day surgery (SDC) | payer OTHER ==
[2022-03-10] MEDS ORDERED: SODIUM CHLORIDE 100 ML IVPB ONE (16:08)
[2022-03-10 16:57] VITALS: BP 111/74; PULSE 95; TEMP 97.8
[2022-03-10] MEDS ORDERED: CEFTRIAXONE 2 GM in SODIUM CHLORIDE 100 ML IVPB ONE (17:00)
== END 2022-03-10 16:55 | disposition home or self-care (01) ==
LOC: FINFUSION 15:52 → FM/S 15:56 → FINFUSION 16:55
PROVIDERS: ATTEND Internal Medicine Infectious Disease
DX: M86.9 Osteomyelitis, unspecified (principal)
CPT/HCPCS: 96365

== ENCOUNTER 2022-03-11 15:40 | Day surgery (SDC) | payer OTHER ==
[2022-03-11] MEDS ORDERED: DEXTROSE 5%-WATER 100 ML IVPB ONE (16:52)
[2022-03-11] MEDS ORDERED: CEFTRIAXONE 2 GM in DEXTROSE 5%-WATER 100 ML IVPB ONE (17:00)
[2022-03-11 17:43] VITALS: BP 103/59; PULSE 86; TEMP 99
== END 2022-03-11 17:58 | disposition home or self-care (01) ==
LOC: FINFUSION 15:40 → FM/S 15:43 → FINFUSION 17:58
PROVIDERS: ATTEND Internal Medicine Infectious Disease
DX: M86.9 Osteomyelitis, unspecified (principal)
CPT/HCPCS: 36415; 86140; 96365

== ENCOUNTER 2022-03-12 15:36 | Day surgery (SDC) | payer OTHER ==
[2022-03-12] MEDS ORDERED: SODIUM CHLORIDE 100 ML IVPB ONE (16:05)
[2022-03-12] MEDS ORDERED: CEFTRIAXONE 2 GM in SODIUM CHLORIDE 100 ML IVPB ONE (17:00)
[2022-03-12 17:17] VITALS: BP 100/58; PULSE 87; TEMP 98
== END 2022-03-12 16:20 | disposition home or self-care (01) ==
LOC: FINFUSION 15:36 → FM/S 15:38 → FINFUSION 16:20
PROVIDERS: ATTEND Internal Medicine Infectious Disease
DX: M86.9 Osteomyelitis, unspecified (principal)
CPT/HCPCS: 96365

== ENCOUNTER 2022-03-13 16:17 | Day surgery (SDC) | payer OTHER ==
[2022-03-13] MEDS ORDERED: SODIUM CHLORIDE 100 ML IVPB ONE (16:38)
[2022-03-13] MEDS ORDERED: CEFTRIAXONE 2 GM in SODIUM CHLORIDE 100 ML IVPB ONE (17:00)
[2022-03-13 17:51] VITALS: BP 105/58; PULSE 89; TEMP 98.5
== END 2022-03-13 18:38 | disposition home or self-care (01) ==
LOC: FINFUSION 16:17 → FM/S 16:19 → FINFUSION 18:38
PROVIDERS: ATTEND Internal Medicine Infectious Disease
DX: M86.9 Osteomyelitis, unspecified (principal)
CPT/HCPCS: 96365

== ENCOUNTER 2022-03-14 16:14 | Day surgery (SDC) | payer OTHER ==
[2022-03-14] MEDS ORDERED: CEFTRIAXONE 2 GM in DEXTROSE 5%-WATER 100 ML IVPB ONE (16:45)
[2022-03-14] MEDS ORDERED: DEXTROSE 5%-WATER 100 ML IVPB ONE (16:46)
[2022-03-14 19:00] VITALS: BP 101/66; PULSE 81; TEMP 98.6
== END 2022-03-14 17:35 | disposition home or self-care (01) ==
LOC: FINFUSION 16:14 → FM/S 16:15 → FINFUSION 17:35
PROVIDERS: ATTEND Internal Medicine Infectious Disease
DX: M86.9 Osteomyelitis, unspecified (principal)
CPT/HCPCS: 96365

== ENCOUNTER 2022-03-15 16:01 | Day surgery (SDC) | payer OTHER ==
[2022-03-15] MEDS ORDERED: cefTRIAXone 2 GM/100 ML BAG (PRE-DOCKED) IVPB SCH (16:15)
[2022-03-15 17:05] VITALS: PULSE 86; TEMP 98.2
[2022-03-19 07:19] VITALS: BP 114/51
== END 2022-03-15 17:07 | disposition home or self-care (01) ==
LOC: FINFUSION 16:01 → FM/S 16:02 → FINFUSION 17:07
PROVIDERS: ATTEND Internal Medicine Infectious Disease
DX: M86.9 Osteomyelitis, unspecified (principal)
CPT/HCPCS: 96365

== ENCOUNTER 2022-03-16 15:45 | Day surgery (SDC) | payer OTHER ==
[2022-03-16] MEDS ORDERED: DEXTROSE 5%-WATER 100 ML IVPB ONE (16:05)
[2022-03-16] MEDS ORDERED: CEFTRIAXONE 2 GM in DEXTROSE 5%-WATER 100 ML IVPB ONE (16:15)
[2022-03-16 16:48] VITALS: BP 101/70; PULSE 91; TEMP 98.1
== END 2022-03-16 16:51 | disposition home or self-care (01) ==
LOC: FINFUSION 15:45 → FM/S 15:45 → FINFUSION 16:51
PROVIDERS: ATTEND Internal Medicine Infectious Disease
DX: M86.9 Osteomyelitis, unspecified (principal)
CPT/HCPCS: 96365

== ENCOUNTER 2022-03-17 16:12 | Day surgery (SDC) | payer OTHER ==
[2022-03-17 16:34] VITALS: TEMP 99
[2022-03-17] MEDS ORDERED: CEFTRIAXONE 2 GM in DEXTROSE 5%-WATER 100 ML IVPB ONE (16:45)
[2022-03-17 17:14] VITALS: BP 110/55; PULSE 90
== END 2022-03-17 17:15 | disposition home or self-care (01) ==
LOC: FINFUSION 16:12 → FM/S 16:17 → FINFUSION 17:15
PROVIDERS: ATTEND Internal Medicine Infectious Disease
DX: M86.9 Osteomyelitis, unspecified (principal)
CPT/HCPCS: 96365

== ENCOUNTER 2022-03-18 15:44 | Day surgery (SDC) | payer OTHER ==
[2022-03-18] MEDS ORDERED: SODIUM CHLORIDE 100 ML IVPB ONE (16:09)
[2022-03-18] MEDS ORDERED: CEFTRIAXONE 2 GM in SODIUM CHLORIDE 100 ML IVPB ONE (17:00)
[2022-03-18 17:35] VITALS: BP 117/59; PULSE 90; TEMP 98.9
== END 2022-03-18 17:15 | disposition home or self-care (01) ==
LOC: FINFUSION 15:44 → FM/S 15:49 → FINFUSION 17:15
PROVIDERS: ATTEND Internal Medicine Infectious Disease
DX: M86.9 Osteomyelitis, unspecified (principal)
CPT/HCPCS: 36415; 85651; 86140; 96365

== ENCOUNTER 2022-03-19 16:10 | Day surgery (SDC) | payer OTHER ==
[2022-03-19] MEDS ORDERED: SODIUM CHLORIDE 100 ML IVPB ONE (16:44)
[2022-03-19] MEDS ORDERED: CEFTRIAXONE 2 GM in SODIUM CHLORIDE 100 ML IVPB ONE (17:00)
[2022-03-19 20:43] VITALS: BP 123/61; PULSE 84; TEMP 98.8
== END 2022-03-19 18:15 | disposition home or self-care (01) ==
LOC: FINFUSION 16:10 → FM/S 16:14 → FINFUSION 19:30
PROVIDERS: ATTEND Internal Medicine Infectious Disease
DX: M86.9 Osteomyelitis, unspecified (principal)
CPT/HCPCS: 96365

== ENCOUNTER 2022-03-20 15:39 | Day surgery (SDC) | payer OTHER ==
[2022-03-20] MEDS ORDERED: SODIUM CHLORIDE 100 ML IVPB ONE (16:00)
[2022-03-20 16:45] VITALS: TEMP 98.8
[2022-03-20 16:52] VITALS: BP 99/68; PULSE 87
[2022-03-20] MEDS ORDERED: CEFTRIAXONE 2 GM in SODIUM CHLORIDE 100 ML IVPB ONE (17:00)
== END 2022-03-20 17:13 | disposition home or self-care (01) ==
LOC: FINFUSION 15:39 → FM/S 15:56 → FINFUSION 17:13
PROVIDERS: ATTEND Internal Medicine Infectious Disease
DX: M86.9 Osteomyelitis, unspecified (principal)
CPT/HCPCS: 96365; 96367

== ENCOUNTER 2022-03-21 16:12 | Day surgery (SDC) | payer OTHER ==
[2022-03-21] MEDS ORDERED: SODIUM CHLORIDE 100 ML IVPB ONE (16:31)
[2022-03-21] MEDS ORDERED: CEFTRIAXONE 2 GM in SODIUM CHLORIDE 100 ML IVPB ONE (17:00)
[2022-03-21 17:31] VITALS: BP 102/52; PULSE 92; TEMP 97.5
== END 2022-03-21 17:15 | disposition home or self-care (01) ==
LOC: FINFUSION 16:12 → FM/S 16:17 → FINFUSION 17:15
PROVIDERS: ATTEND Internal Medicine Infectious Disease
DX: M86.9 Osteomyelitis, unspecified (principal)
CPT/HCPCS: 96365

== ENCOUNTER 2022-03-22 16:18 | Day surgery (SDC) | payer OTHER ==
[2022-03-22] MEDS ORDERED: CEFTRIAXONE 2 GM in SODIUM CHLORIDE 100 ML IVPB ONE ×2 (16:45→17:00)
[2022-03-22] MEDS ORDERED: cefTRIAXone 2 GM/100 ML BAG (PRE-DOCKED) IVPB SCH ×2 (16:45)
[2022-03-22 17:31] VITALS: BP 100/51; PULSE 93; TEMP 98.7
== END 2022-03-22 17:30 | disposition home or self-care (01) ==
LOC: FINFUSION 16:18 → FM/S 16:20 → FINFUSION 17:30
PROVIDERS: ATTEND Internal Medicine Infectious Disease
DX: M86.9 Osteomyelitis, unspecified (principal)
CPT/HCPCS: 96365

== ENCOUNTER 2022-03-23 11:26 | Day surgery (SDC) | payer OTHER ==
[2022-03-23] MEDS ORDERED: SODIUM CHLORIDE 100 ML IVPB ONE (12:00)
[2022-03-23] MEDS ORDERED: CEFTRIAXONE 2 GM in SODIUM CHLORIDE 100 ML IVPB ONE (12:00)
[2022-03-23 12:56] VITALS: BP 109/58; PULSE 92; TEMP 98.2
== END 2022-03-23 12:40 | disposition home or self-care (01) ==
LOC: FINFUSION 11:26 → FM/S 11:30 → FINFUSION 12:40
PROVIDERS: ATTEND Internal Medicine Infectious Disease
DX: M86.9 Osteomyelitis, unspecified (principal)
CPT/HCPCS: 96365

== ENCOUNTER 2022-03-24 17:01 | Day surgery (SDC) | payer OTHER ==
[2022-03-24] MEDS ORDERED: SODIUM CHLORIDE 100 ML IVPB ONE (17:25)
[2022-03-24 18:13] VITALS: BP 112/54; PULSE 85; TEMP 97.8
== END 2022-03-24 18:10 | disposition home or self-care (01) ==
LOC: FINFUSION 17:01 → FM/S 17:12 → FINFUSION 18:10
PROVIDERS: ATTEND Internal Medicine Infectious Disease
DX: M86.9 Osteomyelitis, unspecified (principal)
CPT/HCPCS: 96365

== ENCOUNTER 2022-03-25 15:49 | Day surgery (SDC) | payer OTHER ==
[2022-03-25] MEDS ORDERED: SODIUM CHLORIDE 100 ML IVPB ONE (16:05)
[2022-03-25 16:33] VITALS: BP 114/62; PULSE 82; TEMP 98.2
[2022-03-25] MEDS ORDERED: CEFTRIAXONE 2 GM in SODIUM CHLORIDE 100 ML IVPB ONE (17:00)
== END 2022-03-25 16:52 | disposition home or self-care (01) ==
LOC: FINFUSION 15:49 → FM/S 16:02 → FINFUSION 16:52
PROVIDERS: ATTEND Internal Medicine Infectious Disease
DX: M86.9 Osteomyelitis, unspecified (principal)
CPT/HCPCS: 36415; 86140; 96365; 96367

== ENCOUNTER 2022-03-26 15:55 | Day surgery (SDC) | payer OTHER ==
[2022-03-26] MEDS ORDERED: SODIUM CHLORIDE 100 ML IVPB ONE (16:04)
[2022-03-26] MEDS ORDERED: CEFTRIAXONE 2 GM in SODIUM CHLORIDE 100 ML IVPB ONE (17:00)
[2022-03-26 17:01] VITALS: BP 111/53; PULSE 84; TEMP 98.3
== END 2022-03-26 17:06 | disposition home or self-care (01) ==
LOC: FINFUSION 15:55 → FM/S 15:59 → FINFUSION 17:06
PROVIDERS: ATTEND Internal Medicine Infectious Disease
DX: M86.9 Osteomyelitis, unspecified (principal)
CPT/HCPCS: 96365

== ENCOUNTER 2022-03-27 16:17 | Day surgery (SDC) | payer OTHER ==
[2022-03-27] MEDS ORDERED: SODIUM CHLORIDE 100 ML IVPB ONE (16:32)
[2022-03-27] MEDS ORDERED: CEFTRIAXONE 2 GM in SODIUM CHLORIDE 100 ML IVPB ONE (17:00)
[2022-03-27 17:15] VITALS: BP 108/59; PULSE 83; TEMP 98.1
== END 2022-03-27 17:36 | disposition home or self-care (01) ==
LOC: FINFUSION 16:17 → FM/S 16:22 → FINFUSION 17:36
PROVIDERS: ATTEND Internal Medicine Infectious Disease
DX: M86.9 Osteomyelitis, unspecified (principal)
CPT/HCPCS: 96365

== ENCOUNTER 2022-03-28 16:07 | Day surgery (SDC) | payer OTHER ==
[2022-03-28] MEDS ORDERED: DEXTROSE 5%-WATER 100 ML IVPB ONE (16:43)
[2022-03-28] MEDS ORDERED: CEFTRIAXONE 2 GM in DEXTROSE 5%-WATER 100 ML IVPB ONE (16:45)
== END 2022-03-28 17:00 | disposition home or self-care (01) ==
LOC: FINFUSION 16:07 → FM/S 16:10 → FINFUSION 17:00
PROVIDERS: ATTEND Internal Medicine Infectious Disease
DX: M86.9 Osteomyelitis, unspecified (principal)
CPT/HCPCS: 96365

== ENCOUNTER 2022-03-29 16:29 | Day surgery (SDC) | payer OTHER ==
[2022-03-29] MEDS ORDERED: DEXTROSE 5%-WATER 100 ML IVPB ONE (16:54)
[2022-03-29] MEDS ORDERED: CEFTRIAXONE 2 GM in DEXTROSE 5%-WATER 100 ML IVPB ONE (17:00)
[2022-03-29 17:06] VITALS: TEMP 98.1
[2022-04-01 11:37] VITALS: BP 125/56; PULSE 67
== END 2022-03-29 17:28 | disposition home or self-care (01) ==
LOC: FINFUSION 16:29 → FM/S 16:30 → FINFUSION 17:28
PROVIDERS: ATTEND Internal Medicine Infectious Disease
DX: M86.9 Osteomyelitis, unspecified (principal)
CPT/HCPCS: 96365

== ENCOUNTER 2022-03-30 16:10 | Day surgery (SDC) | payer OTHER ==
[2022-03-30] MEDS ORDERED: DEXTROSE 5%-WATER 100 ML IVPB ONE (17:08)
[2022-03-30] MEDS ORDERED: CEFTRIAXONE 2 GM in DEXTROSE 5%-WATER 100 ML IVPB ONE (17:15)
[2022-03-30 17:51] VITALS: BP 117/60; PULSE 77; TEMP 98.6
== END 2022-03-30 17:51 | disposition home or self-care (01) ==
LOC: FINFUSION 16:10 → FM/S 16:10 → FINFUSION 17:51
PROVIDERS: ATTEND Internal Medicine Infectious Disease
DX: M86.9 Osteomyelitis, unspecified (principal)
CPT/HCPCS: 96365

== ENCOUNTER 2022-03-31 16:29 | Day surgery (SDC) | payer OTHER ==
[2022-03-31] MEDS ORDERED: SODIUM CHLORIDE 100 ML IVPB ONE (16:40)
[2022-03-31] MEDS ORDERED: CEFTRIAXONE 2 GM in SODIUM CHLORIDE 100 ML IVPB ONE (17:00)
[2022-03-31 17:47] VITALS: BP 127/56; PULSE 68; TEMP 97.8
== END 2022-03-31 17:15 | disposition home or self-care (01) ==
LOC: FINFUSION 16:29 → FM/S 16:29 → FINFUSION 17:15
PROVIDERS: ATTEND Internal Medicine Infectious Disease
DX: M86.9 Osteomyelitis, unspecified (principal)
CPT/HCPCS: 96365

== ENCOUNTER 2022-04-01 15:37 | Day surgery (SDC) | payer OTHER ==
[2022-04-01 16:37] VITALS: BP 110/56; PULSE 68; TEMP 98
[2022-04-01] MEDS ORDERED: CEFTRIAXONE 2 GM in SODIUM CHLORIDE 100 ML IVPB ONE (17:00)
== END 2022-04-01 16:46 | disposition home or self-care (01) ==
LOC: FINFUSION 15:37 → FM/S 15:41 → FINFUSION 16:46
PROVIDERS: ATTEND Internal Medicine Infectious Disease
DX: M86.9 Osteomyelitis, unspecified (principal)
CPT/HCPCS: 36415; 85651; 86140; 96365

== ENCOUNTER 2023-08-30 15:22 | Inpatient (IN) | payer OTHER ==
[2023-08-30 19:11] LABS: BASO % 0.6 % (0-2.0); EOS % 1.3 % (0-4.5); HEMATOCRIT 40.7 % (35.4-49); HEMOGLOBIN 13.6 GM/dL (11.7-16.9); LYMPH % 15.2 % (8-40); MCH 29.8 pg (25.7-33.7); MCHC 33.4 g/dl (32.0-35.9); MEAN CELL VOLUME 89.3 fl (80-96); MEAN PLT VOLUME 7.1 fl (7.5-11.1); NEUT % 72.9 % (42.8-82.8); PLATELET COUNT 303 10^3/uL (134-434); RBC 4.55 M/mm3 (4.00-5.60); RDW 13.8 % (11.9-15.9); WHITE BLOOD COUNT 11.7 K/mm3 (4.0-10.0)
[2023-08-30 19:36] LABS: POTASSIUM 4.3 mmol/L (3.5-5.1)
[2023-08-30 19:39] LABS: ALBUMIN 3.5 g/dl (3.4-5.0); BLOOD UREA NITROGEN 36.4 mg/dL (7-18); CALCIUM 8.7 mg/dL (8.5-10.1)
[2023-08-30 19:42] LABS: CREATININE 1.4 mg/dL (0.55-1.3)
[2023-08-30 19:44] LABS: BILIRUBIN,TOTAL 0.3 mg/dL (0.2-1); TOT PROT 7.6 g/dl (6.4-8.2)
[2023-08-30] MEDS: PIPERACILLIN/TAZOB 3.375 GM 3.375 GM in DEXTROSE 5%-WATER - 50 ML IVPB ONE (19:49)
[2023-08-30] MEDS: VANCOMYCIN/WATER 1250 MG 1,250 MG/250 ML BAG IVPB ONE (19:53)
[2023-08-30 20:04] LABS: ERYTHROCYTE SEDIMENTATION RATE 58 mm/hr (0-20)
[2023-08-30] MEDS: SODIUM CHLORIDE 1,000 ML IV STA (20:28)
[2023-08-30] MEDS: INSULIN ASPART SLIDING SCALE (NOVOLOG) 1 VIAL SQ SCH (23:04)
[2023-08-31] MEDS: PIPERACILLIN/TAZOB 3.375 GM 3.375 GM in DEXTROSE 5%-WATER - 50 ML IVPB SCH ×2 (02:14→19:24)
[2023-08-31] MEDS ORDERED: INSULIN (NOVOLOG) ASPART 100 UNITS/ML 10ML VIAL ONE ×2 (05:37→06:23)
[2023-08-31] MEDS: INSULIN (LEVEMIR) 100 UNITS/ML UNITS SQ SCH (06:30)
[2023-08-31 09:01] LABS: HEMATOCRIT 38.5 % (35.4-49); HEMOGLOBIN 13.1 GM/dL (11.7-16.9); MCH 30.1 pg (25.7-33.7); MCHC 34.1 g/dl (32.0-35.9); MEAN CELL VOLUME 88.3 fl (80-96); PLATELET COUNT 282 10^3/uL (134-434); RBC 4.36 M/mm3 (4.00-5.60); RDW 13.8 % (11.9-15.9); WHITE BLOOD COUNT 9.5 K/mm3 (4.0-10.0)
[2023-08-31 09:16] LABS: POTASSIUM 4.4 mmol/L (3.5-5.1)
[2023-08-31 09:18] LABS: BLOOD UREA NITROGEN 21.1 mg/dL (7-18); CALCIUM 8.7 mg/dL (8.5-10.1)
[2023-08-31 09:22] LABS: CREATININE 1.1 mg/dL (0.55-1.3)
[2023-08-31] MEDS ORDERED: INSULIN (LEVEMIR) 100 UNITS/ML UNITS SQ SCH (10:00)
[2023-08-31] MEDS: CEFTRIAXONE 1 GM in DEXTROSE 5%-WATER - 50 ML IVPB SCH (10:13)
[2023-08-31] MEDS: ASPIRIN 81 MG CHEWABLE TABLETS PO SCH (10:13)
[2023-08-31] MEDS: ENOXAPARIN NA (PORCINE) 40 MG/0.4 ML DISP.SYRIN SQ SCH (10:13)
[2023-08-31] MEDS ORDERED: oxyCODONE HCL 5 MG TABLET PO PRN (16:05)
[2023-09-01] MEDS ORDERED: LIDOCAINE HCL 1%, 10 MG/ML (20ML VIAL) ONE (07:06)
[2023-09-01] MEDS ORDERED: GENTAMICIN SO4 80 MG/2 ML VIAL ONE (07:06)
[2023-09-01] MEDS ORDERED: BUPIVACAINE HCL/PF 0.5% (5MG/ML) 10 ML VIAL ONE (07:06)
[2023-09-01 08:46] LABS: BASO % 0.7 % (0-2.0); EOS % 2.4 % (0-4.5); HEMATOCRIT 42.6 % (35.4-49); HEMOGLOBIN 14.5 GM/dL (11.7-16.9); LYMPH % 15.3 % (8-40); MCH 30.1 pg (25.7-33.7); MEAN CELL VOLUME 88.6 fl (80-96); MEAN PLT VOLUME 7.1 fl (7.5-11.1); MONO % 8.8 % (3.8-10.2); NEUT % 72.8 % (42.8-82.8); PLATELET COUNT 317 10^3/uL (134-434); RBC 4.81 M/mm3 (4.00-5.60); RDW 13.7 % (11.9-15.9); WHITE BLOOD COUNT 9.7 K/mm3 (4.0-10.0)
[2023-09-01 08:52] LABS: INR 1.07 (0.83-1.09); PROTHROMBIN TIME (PATIENT) 12.4 SEC (9.7-13.0)
[2023-09-01 09:13] LABS: POTASSIUM 4.6 mmol/L (3.5-5.1)
[2023-09-01 09:21] LABS: ALBUMIN 3.2 g/dl (3.4-5.0); MAGNESIUM 2.3 mg/dL (1.8-2.4)
[2023-09-01 09:23] LABS: CREATININE 0.9 mg/dL (0.55-1.3)
[2023-09-01 09:25] LABS: BILIRUBIN,TOTAL 0.6 mg/dL (0.2-1)
[2023-09-01 09:26] LABS: TOT PROT 7.5 g/dl (6.4-8.2)
[2023-09-01] MEDS ORDERED: cefTRIAXone SODIUM 1 GM VIAL ONE (09:46)
[2023-09-01] MEDS: LISINOPRIL 5 MG TABLET PO SCH (09:49)
[2023-09-01 10:29] LABS: URINE BENZODIAZEPINES NEGATIVE (NEGATIVE)
[2023-09-01 10:30] LABS: METHADONE, UR NEGATIVE (NEGATIVE); OPIATES, URI NEGATIVE (NEGATIVE); URINE AMPHETAMINES NEGATIVE (NEGATIVE); URINE BARBITURATES NEGATIVE (NEGATIVE)
[2023-09-01 10:31] LABS: PHENCYCLIDINE,URINE NEGATIVE (NEGATIVE)
[2023-09-01 10:32] LABS: COCAINE, UR POSITIVE (NEGATIVE)
[2023-09-01 13:03] VITALS: BMI 27.8
[2023-09-01] MEDS: AMINO ACIDS/PROTEIN HYDROLYS 30 ML LIQUID.PKT PO SCH (17:09)
[2023-09-01] MEDS ORDERED: INSULIN (NOVOLOG) ASPART 100 UNITS/ML 10ML VIAL ONE (21:49)
[2023-09-02] MEDS ORDERED: INSULIN (NOVOLOG) ASPART 100 UNITS/ML 10ML VIAL ONE ×4 (06:03→22:21)
[2023-09-02 09:27] LABS: INR 1.1 (0.83-1.09); PROTHROMBIN TIME (PATIENT) 12.8 SEC (9.7-13.0)
[2023-09-02 09:33] LABS: BASO % 0.4 % (0-2.0); HEMATOCRIT 40.6 % (35.4-49); HEMOGLOBIN 13.9 GM/dL (11.7-16.9); LYMPH % 16.9 % (8-40); MCH 30.3 pg (25.7-33.7); MCHC 34.2 g/dl (32.0-35.9); MEAN CELL VOLUME 88.6 fl (80-96); MONO % 8.8 % (3.8-10.2); NEUT % 70.9 % (42.8-82.8); PLATELET COUNT 323 10^3/uL (134-434); RBC 4.58 M/mm3 (4.00-5.60); RDW 13.7 % (11.9-15.9); WHITE BLOOD COUNT 8.4 K/mm3 (4.0-10.0)
[2023-09-02] MEDS: MULTIVITAMINS THER W-MINERALS COMBO TABLET (FP) PO SCH (10:28)
[2023-09-02 10:44] LABS: POTASSIUM 4.9 mmol/L (3.5-5.1)
[2023-09-02 10:50] LABS: CALCIUM 8.5 mg/dL (8.5-10.1)
[2023-09-02 10:51] LABS: BLOOD UREA NITROGEN 21.1 mg/dL (7-18); MAGNESIUM 2.2 mg/dL (1.8-2.4)
[2023-09-02 10:55] LABS: BILIRUBIN,TOTAL 0.4 mg/dL (0.2-1); TOT PROT 6.9 g/dl (6.4-8.2)
[2023-09-02] MEDS: NICOTINE 14 MG/24 HOURS TOPICAL PATCH TD SCH (16:56)
[2023-09-03] MEDS ORDERED: INSULIN (NOVOLOG) ASPART 100 UNITS/ML 10ML VIAL ONE ×4 (06:02→23:03)
[2023-09-03 08:55] LABS: INR 1.05 (0.83-1.09); PROTHROMBIN TIME (PATIENT) 12.2 SEC (9.7-13.0)
[2023-09-03 08:58] LABS: BASO % 0.8 % (0-2.0); EOS % 2.8 % (0-4.5); HEMATOCRIT 43.7 % (35.4-49); HEMOGLOBIN 14.8 GM/dL (11.7-16.9); LYMPH % 19.4 % (8-40); MCH 29.7 pg (25.7-33.7); MCHC 33.8 g/dl (32.0-35.9); MEAN CELL VOLUME 87.9 fl (80-96); MEAN PLT VOLUME 6.5 fl (7.5-11.1); MONO % 9.4 % (3.8-10.2); NEUT % 67.6 % (42.8-82.8); PLATELET COUNT 356 10^3/uL (134-434); RBC 4.97 M/mm3 (4.00-5.60); RDW 14.1 % (11.9-15.9); WHITE BLOOD COUNT 9.6 K/mm3 (4.0-10.0)
[2023-09-03 10:33] LABS: POTASSIUM 4.6 mmol/L (3.5-5.1)
[2023-09-03 10:39] LABS: ALBUMIN 3.3 g/dl (3.4-5.0); BLOOD UREA NITROGEN 22.7 mg/dL (7-18); MAGNESIUM 2.4 mg/dL (1.8-2.4)
[2023-09-03 10:43] LABS: TOT PROT 7.4 g/dl (6.4-8.2)
[2023-09-03 11:16] LABS: BILIRUBIN,TOTAL 0.4 mg/dL (0.2-1)
[2023-09-04] MEDS ORDERED: DEXAMETHASONE SOD PHOSPHATE 10 MG/1 ML VIAL ONE (07:10)
[2023-09-04] MEDS ORDERED: BACITRACIN ZINC 15 GM TUBE TOPICAL OINTMENT ONE (07:10)
[2023-09-04] MEDS ORDERED: BUPIVACAINE HCL/PF 0.5% (5MG/ML) 10 ML VIAL ONE (07:10)
[2023-09-04] MEDS ORDERED: LIDOCAINE HCL 1%, 10 MG/ML (20ML VIAL) ONE (07:10)
[2023-09-04] MEDS ORDERED: GENTAMICIN SO4 80 MG/2 ML VIAL ONE (07:16)
[2023-09-04] MEDS ORDERED: ONDANSETRON 4 MG/2 ML VIAL IVPUSH PRN ×2 (07:25→08:32)
[2023-09-04] MEDS ORDERED: oxyCODONE HCL 5 MG TABLET PO PRN ×2 (07:25→08:32)
[2023-09-04] MEDS ORDERED: PROPOFOL 20 ML ONE (07:30)
[2023-09-04] MEDS ORDERED: MIDAZOLAM HCL 2 MG/2 ML SINGLE DOSE VIAL ONE ×2 (07:30→07:33)
[2023-09-04] MEDS ORDERED: ceFAZolin SODIUM 1 GM VIAL ONE (07:31)
[2023-09-04] MEDS: LIDOCAINE HCL 1%, 10 MG/ML (20ML VIAL) NR ONE (07:38)
[2023-09-04] MEDS: BUPIVACAINE HCL/PF 0.5% (5MG/ML) 10 ML VIAL IJ ONE (07:38)
[2023-09-04] MEDS ORDERED: KETOROLAC TROMETHAMINE 30 MG/1 ML VIAL ONE (07:53)
[2023-09-04] MEDS ORDERED: INSULIN (NOVOLOG) ASPART 100 UNITS/ML 10ML VIAL ONE ×4 (07:56→21:50)
[2023-09-04] MEDS: LACTATED RINGERS SOLUTION 1,000 ML IV SCH ×2 (09:00→09:27)
[2023-09-04 10:02] LABS: BASO % 0.4 % (0-2.0); EOS % 2.3 % (0-4.5); HEMATOCRIT 42.6 % (35.4-49); HEMOGLOBIN 14.2 GM/dL (11.7-16.9); LYMPH % 18.7 % (8-40); MCH 29.5 pg (25.7-33.7); MCHC 33.3 g/dl (32.0-35.9); MEAN CELL VOLUME 88.7 fl (80-96); MEAN PLT VOLUME 6.7 fl (7.5-11.1); MONO % 8.1 % (3.8-10.2); NEUT % 70.5 % (42.8-82.8); PLATELET COUNT 320 10^3/uL (134-434); RDW 14.1 % (11.9-15.9); WHITE BLOOD COUNT 8.3 K/mm3 (4.0-10.0)
[2023-09-04 10:04] LABS: BASO % 0.3 % (0-2.0); EOS % 2.4 % (0-4.5); HEMATOCRIT 41.9 % (35.4-49); HEMOGLOBIN 14.1 GM/dL (11.7-16.9); LYMPH % 19.1 % (8-40); MCH 29.7 pg (25.7-33.7); MCHC 33.6 g/dl (32.0-35.9); MEAN CELL VOLUME 88.4 fl (80-96); MEAN PLT VOLUME 6.7 fl (7.5-11.1); MONO % 8.1 % (3.8-10.2); NEUT % 70.1 % (42.8-82.8); PLATELET COUNT 319 10^3/uL (134-434); RBC 4.74 M/mm3 (4.00-5.60); WHITE BLOOD COUNT 8.4 K/mm3 (4.0-10.0)
[2023-09-04 10:07] LABS: INR 1.1 (0.83-1.09); PROTHROMBIN TIME (PATIENT) 12.8 SEC (9.7-13.0)
[2023-09-04 10:24] LABS: POTASSIUM 5.4 mmol/L (3.5-5.1)
[2023-09-04 10:47] LABS: BLOOD UREA NITROGEN 28.2 mg/dL (7-18)
[2023-09-04 10:49] LABS: ALBUMIN 3.1 g/dl (3.4-5.0); CALCIUM 8.9 mg/dL (8.5-10.1)
[2023-09-04 10:50] LABS: MAGNESIUM 2.2 mg/dL (1.8-2.4)
[2023-09-04 10:52] LABS: CREATININE 1.1 mg/dL (0.55-1.3)
[2023-09-04 10:54] LABS: BILIRUBIN,TOTAL 0.2 mg/dL (0.2-1); TOT PROT 6.7 g/dl (6.4-8.2)
[2023-09-04] MEDS: LISINOPRIL 5 MG TABLET PO SCH (11:14)
[2023-09-04] MEDS: ASPIRIN 81 MG CHEWABLE TABLETS PO SCH (11:17)
[2023-09-04] MEDS: MULTIVITAMINS THER W-MINERALS COMBO TABLET (FP) PO SCH (11:17)
[2023-09-04] MEDS: NICOTINE 14 MG/24 HOURS TOPICAL PATCH TD SCH (11:18)
[2023-09-04] MEDS: INSULIN ASPART SLIDING SCALE (NOVOLOG) 1 VIAL SQ SCH (12:04)
[2023-09-04] MEDS: SODIUM POLYSTYRENE SULFONATE 15 GM/60 ML BOTTLE PO ONE (17:08)
[2023-09-04] MEDS: AMINO ACIDS/PROTEIN HYDROLYS 30 ML LIQUID.PKT PO SCH (17:16)
[2023-09-04] MEDS: CEFTRIAXONE 2 GM in DEXTROSE 5%-WATER 100 ML IVPB SCH (17:16)
[2023-09-04] MEDS: oxyCODONE HCL 5 MG TABLET PO PRN (22:00)
[2023-09-05] MEDS ORDERED: INSULIN (NOVOLOG) ASPART 100 UNITS/ML 10ML VIAL ONE (05:25)
[2023-09-05] MEDS: INSULIN (LEVEMIR) 100 UNITS/ML UNITS SQ SCH (07:02)
[2023-09-05 10:16] LABS: POTASSIUM 4.4 mmol/L (3.5-5.1)
[2023-09-05 10:21] LABS: BLOOD UREA NITROGEN 22.6 mg/dL (7-18)
[2023-09-05 10:22] LABS: CALCIUM 8.3 mg/dL (8.5-10.1)
[2023-09-05 10:24] LABS: CREATININE 1.1 mg/dL (0.55-1.3)
[2023-09-06] MEDS ORDERED: INSULIN (NOVOLOG) ASPART 100 UNITS/ML 10ML VIAL ONE ×2 (11:58→21:12)
[2023-09-07] MEDS ORDERED: INSULIN (NOVOLOG) ASPART 100 UNITS/ML 10ML VIAL ONE ×3 (06:09→22:12)
[2023-09-07 06:29] VITALS: RESP 18
[2023-09-07] MEDS: ERTAPENEM SODIUM 1 GM in SODIUM CHLORIDE 50 ML IVPB SCH (10:41)
[2023-09-08 09:14] LABS: BASO % 0.5 % (0-2.0); HEMATOCRIT 40.5 % (35.4-49); HEMOGLOBIN 13.7 GM/dL (11.7-16.9); LYMPH % 19.8 % (8-40); MCH 29.7 pg (25.7-33.7); MCHC 33.8 g/dl (32.0-35.9); MEAN CELL VOLUME 87.8 fl (80-96); MEAN PLT VOLUME 6.9 fl (7.5-11.1); MONO % 7.8 % (3.8-10.2); NEUT % 68.9 % (42.8-82.8); PLATELET COUNT 322 10^3/uL (134-434); RBC 4.61 M/mm3 (4.00-5.60); RDW 13.9 % (11.9-15.9)
[2023-09-08 09:29] LABS: POTASSIUM 4.5 mmol/L (3.5-5.1)
[2023-09-08 09:31] LABS: BLOOD UREA NITROGEN 23.3 mg/dL (7-18)
[2023-09-08 09:34] LABS: CREATININE 0.8 mg/dL (0.55-1.3)
[2023-09-08] MEDS ORDERED: INSULIN (NOVOLOG) ASPART 100 UNITS/ML 10ML VIAL ONE (12:16)
[2023-09-08 15:22] VITALS: BP 148/73; PULSE 80; TEMP 98.2
== END 2023-09-08 16:20 | disposition home or self-care (01) | DRG 314 ==
LOC: JER 15:22 → JERFT 15:22 → JERBED 20:14 → J8W 22:38
PROVIDERS: ADMIT Internal Medicine; ATTEND Nurse Practitioner Family
PROC: 0QBQ0ZX Excision of Right Toe Phalanx, Open Approach, Diagnostic (ICD-10-PCS; 2023-09-04)
PROC: 0HDMXZZ Extraction of Right Foot Skin, External Approach (ICD-10-PCS; 2023-09-04)
PROC: 0Y6V0Z0 Detachment at Right 4th Toe, Complete, Open Approach (ICD-10-PCS; principal; 2023-09-04 07:30)
DX: E11.52 Type 2 diabetes mellitus with diabetic peripheral angiopathy with gangrene (principal); E11.42 Type 2 diabetes mellitus with diabetic polyneuropathy; E11.69 Type 2 diabetes mellitus with other specified complication; L03.115 Cellulitis of right lower limb; L97.519 Non-pressure chronic ulcer of other part of right foot with unspecified severity; M86.671 Other chronic osteomyelitis, right ankle and foot; F17.210 Nicotine dependence, cigarettes, uncomplicated; I10 Essential (primary) hypertension
CPT/HCPCS: 36415; 71046-TC-FY; 73630-TC-RT-FY; 73660-TC-FY; 73718-TC-RT; 80048; 80053; 80061; 80307; 82962; 83036; 83605; 83735; 85025; 85027; 85610; 85651; 86140; 87040; 87070; 87075; 87077; 87081; 87186; 87205; 88305-TC; 88311-TC; 93005; 93010; 93926-TC; 94760; 99285-25; J1100

== ENCOUNTER 2023-09-09 13:09 | Day surgery (SDC) | payer OTHER ==
[2023-09-09] MEDS ORDERED: ERTAPENEM SODIUM 1 GM in SODIUM CHLORIDE 50 ML IVPB ONE (13:45)
[2023-09-09] MEDS ORDERED: DALBAVANCIN HCL 1,500 MG in DEXTROSE 5%-WATER - 500 ML IVPB ONE (15:00)
[2023-09-09 15:57] VITALS: BP 115/58; PULSE 95; RESP 18; TEMP 98.4
== END 2023-09-09 15:58 | disposition home or self-care (01) ==
LOC: FINJECTION 13:09 → FM/S 13:10 → FINJECTION 15:58
PROVIDERS: ATTEND Internal Medicine Infectious Disease
DX: E11.628 Type 2 diabetes mellitus with other skin complications (principal); L97.511 Non-pressure chronic ulcer of other part of right foot limited to breakdown of skin
CPT/HCPCS: 96365; 96366; 96367; J0875

== ENCOUNTER 2023-09-10 14:37 | Day surgery (SDC) | payer OTHER ==
[2023-09-10] MEDS ORDERED: ERTAPENEM SODIUM 1 GM in SODIUM CHLORIDE 50 ML IVPB ONE (15:00)
[2023-09-10 16:19] VITALS: TEMP 97.6
[2023-09-10 17:11] VITALS: BP 100/52; PULSE 78; RESP 16
== END 2023-09-10 16:29 | disposition home or self-care (01) ==
LOC: FINJECTION 14:37 → FM/S 14:37 → FINJECTION 16:29
PROVIDERS: ATTEND Internal Medicine Infectious Disease
DX: E11.628 Type 2 diabetes mellitus with other skin complications (principal); L97.511 Non-pressure chronic ulcer of other part of right foot limited to breakdown of skin
CPT/HCPCS: 96365

== ENCOUNTER 2023-09-11 13:39 | Day surgery (SDC) | payer OTHER ==
[2023-09-11 15:08] VITALS: BP 102/54; RESP 18; TEMP 98.2
[2023-09-11] MEDS ORDERED: ERTAPENEM SODIUM 1 GM in SODIUM CHLORIDE 50 ML IVPB ONE (15:15)
[2023-09-11 16:38] VITALS: PULSE 89
== END 2023-09-11 19:00 | disposition home or self-care (01) ==
LOC: FINJECTION 13:39 → FM/S 13:40 → FINJECTION 19:00
PROVIDERS: ATTEND Internal Medicine Infectious Disease
DX: E11.628 Type 2 diabetes mellitus with other skin complications (principal); L97.511 Non-pressure chronic ulcer of other part of right foot limited to breakdown of skin
CPT/HCPCS: 96365

== ENCOUNTER 2023-09-12 13:15 | Day surgery (SDC) | payer OTHER ==
[2023-09-12] MEDS ORDERED: ERTAPENEM SODIUM 1 GM in SODIUM CHLORIDE 50 ML IVPB SCH (14:15)
[2023-09-12 14:53] VITALS: BP 130/70; PULSE 74; RESP 16; TEMP 98
== END 2023-09-12 14:54 | disposition home or self-care (01) ==
LOC: FINJECTION 13:15 → FM/S 13:44 → FINJECTION 14:54
PROVIDERS: ATTEND Internal Medicine Infectious Disease
DX: E11.628 Type 2 diabetes mellitus with other skin complications (principal); L97.511 Non-pressure chronic ulcer of other part of right foot limited to breakdown of skin
CPT/HCPCS: 96365

== ENCOUNTER 2023-09-13 12:55 | Day surgery (SDC) | payer OTHER ==
[2023-09-13] MEDS ORDERED: ERTAPENEM SODIUM 1 GM in SODIUM CHLORIDE 50 ML IVPB ONE (13:15)
[2023-09-13 14:26] VITALS: BP 112/52; PULSE 69; RESP 16; TEMP 98
== END 2023-09-13 14:25 | disposition home or self-care (01) ==
LOC: FINJECTION 12:55 → FM/S 12:55 → FINJECTION 14:25
PROVIDERS: ATTEND Internal Medicine Infectious Disease
DX: E11.628 Type 2 diabetes mellitus with other skin complications (principal); L97.511 Non-pressure chronic ulcer of other part of right foot limited to breakdown of skin
CPT/HCPCS: 96365

== ENCOUNTER 2023-09-14 13:54 | Day surgery (SDC) | payer OTHER ==
[2023-09-14] MEDS ORDERED: ERTAPENEM SODIUM 1 GM in SODIUM CHLORIDE 50 ML IVPB ONE (14:15)
[2023-09-14 15:21] VITALS: BP 119/64; PULSE 76; RESP 18
== END 2023-09-14 15:24 | disposition home or self-care (01) ==
LOC: FINJECTION 13:54 → FM/S 13:55 → FINJECTION 15:24
PROVIDERS: ATTEND Internal Medicine Infectious Disease
DX: E11.628 Type 2 diabetes mellitus with other skin complications (principal); L97.511 Non-pressure chronic ulcer of other part of right foot limited to breakdown of skin
CPT/HCPCS: 96365

== ENCOUNTER 2023-09-15 14:46 | Day surgery (SDC) | payer OTHER ==
[2023-09-15] MEDS ORDERED: ERTAPENEM SODIUM 1 GM in SODIUM CHLORIDE 50 ML IVPB ONE (15:00)
[2023-09-15 15:42] LABS: HEMOGLOBIN 15.2 G/dL (11.7-16.9); MCHC 33.7 g/dl (32.0-35.9); MEAN CELL VOLUME 88.9 fl (80-96); MEAN PLT VOLUME 7.2 fl (7.5-11.1); PLATELET COUNT 232.8 10^3/uL (134-434); RBC 5.06 10^6/uL (4.00-5.60); RDW 14.4 % (11.9-15.9); WHITE BLOOD COUNT 8.7 10^3/uL (4.0-10.8)
[2023-09-15 16:17] VITALS: BP 110/60; PULSE 96; RESP 18; TEMP 98.8
[2023-09-15 16:36] LABS: ALBUMIN 4.3 g/dl (3.4-5.0); BILIRUBIN,TOTAL 0.4 mg/dl (0.2-1); CALCIUM 9.8 mg/dl (8.5-10.1); CREATININE 1.1 mg/dl (0.6-1.3); POTASSIUM 4.8 mmol/L (3.5-5.1); TOT PROT 7.6 g/dl (6.4-8.2)
== END 2023-09-15 15:55 | disposition home or self-care (01) ==
LOC: FINJECTION 14:46 → FM/S 14:47 → FINJECTION 15:55
PROVIDERS: ATTEND Internal Medicine Infectious Disease
DX: E11.628 Type 2 diabetes mellitus with other skin complications (principal); L97.511 Non-pressure chronic ulcer of other part of right foot limited to breakdown of skin
CPT/HCPCS: 36415; 80053; 85027; 85651; 86140; 96365

== ENCOUNTER 2023-09-16 13:43 | Day surgery (SDC) | payer OTHER ==
[2023-09-16] MEDS ORDERED: ERTAPENEM SODIUM 1 GM in SODIUM CHLORIDE 50 ML IVPB ONE (14:30)
[2023-09-16 15:01] VITALS: BP 110/52; PULSE 92; RESP 18; TEMP 97.9
== END 2023-09-16 15:00 | disposition home or self-care (01) ==
LOC: FINJECTION 13:43 → FM/S 13:44 → FINJECTION 15:00
PROVIDERS: ATTEND Internal Medicine Infectious Disease
DX: E11.628 Type 2 diabetes mellitus with other skin complications (principal); L97.511 Non-pressure chronic ulcer of other part of right foot limited to breakdown of skin
CPT/HCPCS: 96365

== ENCOUNTER 2023-09-17 10:39 | Day surgery (SDC) | payer OTHER ==
[2023-09-17] MEDS ORDERED: ERTAPENEM SODIUM 1 GM in SODIUM CHLORIDE 50 ML IVPB ONE (11:30)
[2023-09-17 11:38] VITALS: BP 134/67; PULSE 76; RESP 18; TEMP 97.8; BMI 27.8
[2023-09-17] MEDS ORDERED: DALBAVANCIN HCL 1,500 MG in DEXTROSE 5%-WATER - 500 ML IVPB ONE (12:00)
== END 2023-09-17 15:35 | disposition home or self-care (01) ==
LOC: FINJECTION 10:39 → FM/S 10:40 → FINJECTION 15:35
PROVIDERS: ATTEND Internal Medicine Infectious Disease
DX: E11.628 Type 2 diabetes mellitus with other skin complications (principal); L97.511 Non-pressure chronic ulcer of other part of right foot limited to breakdown of skin
CPT/HCPCS: 96365; 96367; J0875

== ENCOUNTER 2023-09-18 15:46 | Day surgery (SDC) | payer OTHER ==
[2023-09-18] MEDS ORDERED: ERTAPENEM SODIUM 1 GM in SODIUM CHLORIDE 50 ML IVPB ONE (16:45)
[2023-09-18 18:52] VITALS: BP 128/67; PULSE 72; RESP 18; TEMP 97.9
== END 2023-09-18 18:53 | disposition home or self-care (01) ==
LOC: FINJECTION 15:46 → FM/S 15:48 → FINJECTION 18:53
PROVIDERS: ATTEND Internal Medicine Infectious Disease
DX: E11.628 Type 2 diabetes mellitus with other skin complications (principal); L97.511 Non-pressure chronic ulcer of other part of right foot limited to breakdown of skin
CPT/HCPCS: 96365

== ENCOUNTER 2023-09-19 14:53 | Day surgery (SDC) | payer OTHER ==
[2023-09-19] MEDS ORDERED: ERTAPENEM SODIUM 1 GM in SODIUM CHLORIDE 50 ML IVPB SCH (15:30)
[2023-09-19 16:45] VITALS: BP 124/85; PULSE 72; RESP 16; TEMP 98.6
== END 2023-09-19 16:48 | disposition home or self-care (01) ==
LOC: FINJECTION 14:53 → FM/S 14:53 → FINJECTION 16:48
PROVIDERS: ATTEND Internal Medicine Infectious Disease
DX: E11.628 Type 2 diabetes mellitus with other skin complications (principal); L97.511 Non-pressure chronic ulcer of other part of right foot limited to breakdown of skin
CPT/HCPCS: 96365

== ENCOUNTER 2023-09-20 13:51 | Day surgery (SDC) | payer OTHER ==
[2023-09-20] MEDS ORDERED: ERTAPENEM SODIUM 1 GM in SODIUM CHLORIDE 50 ML IVPB ONE (14:30)
[2023-09-20 15:27] VITALS: BP 128/76; PULSE 87; RESP 18; TEMP 98.1
== END 2023-09-20 15:30 | disposition home or self-care (01) ==
LOC: FINJECTION 13:51 → FM/S 13:52 → FINJECTION 15:30
PROVIDERS: ATTEND Internal Medicine Infectious Disease
DX: E11.628 Type 2 diabetes mellitus with other skin complications (principal); L97.511 Non-pressure chronic ulcer of other part of right foot limited to breakdown of skin
CPT/HCPCS: 96365

== ENCOUNTER 2023-09-21 14:46 | Day surgery (SDC) | payer OTHER ==
[2023-09-21] MEDS ORDERED: ERTAPENEM SODIUM 1 GM in SODIUM CHLORIDE 50 ML IVPB ONE (15:15)
[2023-09-21 18:33] VITALS: BP 111/64; PULSE 85; RESP 18; TEMP 98.5
== END 2023-09-21 16:30 | disposition home or self-care (01) ==
LOC: FINJECTION 14:46 → FM/S 14:49 → FINJECTION 16:30
PROVIDERS: ATTEND Internal Medicine Infectious Disease
DX: E11.628 Type 2 diabetes mellitus with other skin complications (principal); L97.511 Non-pressure chronic ulcer of other part of right foot limited to breakdown of skin
CPT/HCPCS: 96365

== ENCOUNTER 2023-09-22 14:30 | Day surgery (SDC) | payer OTHER ==
[2023-09-22] MEDS ORDERED: ERTAPENEM SODIUM 1 GM in SODIUM CHLORIDE 50 ML IVPB ONE (15:00)
[2023-09-22 17:24] VITALS: BP 132/67; PULSE 78; RESP 18; TEMP 98.1
== END 2023-09-22 16:30 | disposition home or self-care (01) ==
LOC: FINJECTION 14:30 → FM/S 14:32 → FINJECTION 16:30
PROVIDERS: ATTEND Internal Medicine Infectious Disease
DX: E11.628 Type 2 diabetes mellitus with other skin complications (principal); L97.511 Non-pressure chronic ulcer of other part of right foot limited to breakdown of skin
CPT/HCPCS: 96365

== ENCOUNTER 2023-09-23 14:10 | Day surgery (SDC) | payer OTHER ==
[2023-09-23 15:04] VITALS: RESP 18; TEMP 97.9
[2023-09-23] MEDS ORDERED: ERTAPENEM SODIUM 1 GM in SODIUM CHLORIDE 100 ML IVPB ONE (15:15)
[2023-09-23 15:58] VITALS: BP 99/54; PULSE 64
== END 2023-09-23 16:49 | disposition home or self-care (01) ==
LOC: FINJECTION 14:10 → FM/S 14:11 → FINJECTION 16:49
PROVIDERS: ATTEND Internal Medicine Infectious Disease
DX: E11.628 Type 2 diabetes mellitus with other skin complications (principal); L97.511 Non-pressure chronic ulcer of other part of right foot limited to breakdown of skin
CPT/HCPCS: 96365

== ENCOUNTER 2023-09-24 13:23 | Day surgery (SDC) | payer OTHER ==
[2023-09-24 13:50] LABS: HEMATOCRIT 41.1 % (35.4-49); HEMOGLOBIN 13.9 G/dL (11.7-16.9); MCH 29.6 pg (25.7-33.7); MCHC 33.7 g/dl (32.0-35.9); MEAN CELL VOLUME 87.6 fl (80-96); MEAN PLT VOLUME 7.5 fl (7.5-11.1); PLATELET COUNT 197.8 10^3/uL (134-434); RBC 4.69 10^6/uL (4.00-5.60); RDW 14.2 % (11.9-15.9); WHITE BLOOD COUNT 8.3 10^3/uL (4.0-10.8)
[2023-09-24] MEDS ORDERED: ERTAPENEM SODIUM 1 GM in SODIUM CHLORIDE 50 ML IVPB ONE (14:00)
[2023-09-24 14:02] VITALS: BP 126/67; RESP 18; TEMP 97.8
[2023-09-24 14:15] LABS: ALBUMIN 4.2 g/dl (3.4-5.0); BILIRUBIN,TOTAL 0.5 mg/dl (0.2-1); POTASSIUM 4.3 mmol/L (3.5-5.1); TOT PROT 7.2 g/dl (6.4-8.2)
[2023-09-24 14:31] LABS: ERYTHROCYTE SEDIMENTATION RATE 23 mm/hr (0-20)
[2023-09-24 14:48] VITALS: PULSE 76
== END 2023-09-24 15:14 | disposition home or self-care (01) ==
LOC: FINJECTION 13:23 → FM/S 13:26 → FINJECTION 15:14
PROVIDERS: ATTEND Internal Medicine Infectious Disease
DX: E11.628 Type 2 diabetes mellitus with other skin complications (principal); L97.511 Non-pressure chronic ulcer of other part of right foot limited to breakdown of skin
CPT/HCPCS: 36415; 80053; 85027; 85651; 86140; 96365

== ENCOUNTER 2023-09-25 15:46 | Day surgery (SDC) | payer OTHER ==
[2023-09-25 16:13] VITALS: BP 126/56; PULSE 76; RESP 18; TEMP 97.8
[2023-09-25] MEDS ORDERED: ERTAPENEM SODIUM 1 GM in SODIUM CHLORIDE 50 ML IVPB ONE (16:15)
== END 2023-09-25 16:35 | disposition home or self-care (01) ==
LOC: FINJECTION 15:46 → FM/S 15:47 → FINJECTION 16:35
PROVIDERS: ATTEND Internal Medicine Infectious Disease
DX: E11.628 Type 2 diabetes mellitus with other skin complications (principal); L97.511 Non-pressure chronic ulcer of other part of right foot limited to breakdown of skin
CPT/HCPCS: 96365

== ENCOUNTER 2023-09-26 14:46 | Day surgery (SDC) | payer OTHER ==
[2023-09-26] MEDS ORDERED: ERTAPENEM SODIUM 1 GM in SODIUM CHLORIDE 50 ML IVPB SCH (15:15)
[2023-09-26 16:04] VITALS: BP 116/68; PULSE 80; RESP 16; TEMP 97.3
== END 2023-09-26 16:56 | disposition home or self-care (01) ==
LOC: FINJECTION 14:46 → FINFUSION 14:46 → FM/S 14:47 → FINJECTION 16:56
PROVIDERS: ATTEND Internal Medicine Infectious Disease
DX: E11.628 Type 2 diabetes mellitus with other skin complications (principal); L97.511 Non-pressure chronic ulcer of other part of right foot limited to breakdown of skin
CPT/HCPCS: 96365

== ENCOUNTER 2023-09-27 16:44 | Day surgery (SDC) | payer OTHER ==
[2023-09-27] MEDS ORDERED: ERTAPENEM SODIUM 1 GM in SODIUM CHLORIDE 50 ML IVPB ONE (17:00)
[2023-09-27 17:50] VITALS: BP 107/57; PULSE 92; RESP 14; TEMP 97.7
== END 2023-09-27 17:57 | disposition home or self-care (01) ==
LOC: FINJECTION 16:44 → FM/S 16:44 → FINJECTION 17:57
PROVIDERS: ATTEND Internal Medicine Infectious Disease
DX: E11.628 Type 2 diabetes mellitus with other skin complications (principal); L97.511 Non-pressure chronic ulcer of other part of right foot limited to breakdown of skin
CPT/HCPCS: 96365

== ENCOUNTER 2023-09-28 14:50 | Day surgery (SDC) | payer OTHER ==
[2023-09-28] MEDS ORDERED: ERTAPENEM SODIUM 1 GM in SODIUM CHLORIDE 50 ML IVPB ONE (15:15)
[2023-09-28 16:17] VITALS: BP 103/59; PULSE 96; RESP 18; TEMP 98.2
== END 2023-09-28 16:20 | disposition home or self-care (01) ==
LOC: FINFUSION 14:50 → FINJECTION 14:50 → FM/S 14:51 → FINJECTION 16:20
PROVIDERS: ATTEND Internal Medicine Infectious Disease
DX: E11.628 Type 2 diabetes mellitus with other skin complications (principal); L97.511 Non-pressure chronic ulcer of other part of right foot limited to breakdown of skin
CPT/HCPCS: 96365

== ENCOUNTER 2023-09-29 13:49 | Day surgery (SDC) | payer OTHER ==
[2023-09-29] MEDS ORDERED: ERTAPENEM SODIUM 1 GM in SODIUM CHLORIDE 50 ML IVPB ONE (14:15)
[2023-09-29 14:42] LABS: HEMATOCRIT 41.7 % (35.4-49); HEMOGLOBIN 14.2 G/dL (11.7-16.9); MCH 29.9 pg (25.7-33.7); MCHC 33.9 g/dl (32.0-35.9); MEAN CELL VOLUME 87.9 fl (80-96); MEAN PLT VOLUME 7.6 fl (7.5-11.1); PLATELET COUNT 232.8 10^3/uL (134-434); RBC 4.74 10^6/uL (4.00-5.60); RDW 14.7 % (11.9-15.9); WHITE BLOOD COUNT 7.9 10^3/uL (4.0-10.8)
[2023-09-29 15:04] LABS: ALBUMIN 4.3 g/dl (3.4-5.0); BILIRUBIN,TOTAL 0.4 mg/dl (0.2-1); CALCIUM 9.3 mg/dl (8.5-10.1); CREATININE 1.1 mg/dl (0.6-1.3); POTASSIUM 4.6 mmol/L (3.5-5.1); TOT PROT 7.1 g/dl (6.4-8.2)
[2023-09-29 15:57] LABS: ERYTHROCYTE SEDIMENTATION RATE 18 mm/hr (0-20)
[2023-09-29 16:54] VITALS: BP 123/54; PULSE 67; RESP 18; TEMP 97.8
== END 2023-09-29 15:00 | disposition home or self-care (01) ==
LOC: FINFUSION 13:49 → FINJECTION 13:49 → FM/S 13:50 → FINJECTION 15:00
PROVIDERS: ATTEND Internal Medicine Infectious Disease
DX: E11.628 Type 2 diabetes mellitus with other skin complications (principal); L97.511 Non-pressure chronic ulcer of other part of right foot limited to breakdown of skin
CPT/HCPCS: 36415; 80053; 85027; 85651; 86140; 96365

== ENCOUNTER 2023-09-30 15:25 | Day surgery (SDC) | payer OTHER ==
[2023-09-30] MEDS ORDERED: ERTAPENEM SODIUM 1 GM in SODIUM CHLORIDE 50 ML IVPB ONE (16:00)
[2023-09-30 16:42] VITALS: BP 126/52; PULSE 67; RESP 18; TEMP 97.8
== END 2023-09-30 17:06 | disposition home or self-care (01) ==
LOC: FINFUSION 15:25 → FM/S 15:25 → FINJECTION 15:25
PROVIDERS: ATTEND Internal Medicine Infectious Disease
DX: E11.628 Type 2 diabetes mellitus with other skin complications (principal); L97.511 Non-pressure chronic ulcer of other part of right foot limited to breakdown of skin
CPT/HCPCS: 96365

== ENCOUNTER 2023-10-01 15:25 | Day surgery (SDC) | payer OTHER ==
[2023-10-01] MEDS ORDERED: ERTAPENEM SODIUM 1 GM in SODIUM CHLORIDE 50 ML IVPB ONE (16:00)
[2023-10-01 17:33] VITALS: BP 120/69; PULSE 76; RESP 16; TEMP 98.7
== END 2023-10-01 17:33 | disposition home or self-care (01) ==
LOC: FINFUSION 15:25 → FINJECTION 15:25 → FM/S 15:26 → FINJECTION 17:33
PROVIDERS: ATTEND Internal Medicine Infectious Disease
DX: E11.628 Type 2 diabetes mellitus with other skin complications (principal); L97.511 Non-pressure chronic ulcer of other part of right foot limited to breakdown of skin
CPT/HCPCS: 96365

== ENCOUNTER 2023-10-02 14:26 | Day surgery (SDC) | payer OTHER ==
[2023-10-02] MEDS ORDERED: ERTAPENEM SODIUM 1 GM in SODIUM CHLORIDE 50 ML IVPB ONE (14:45)
[2023-10-02 15:18] VITALS: BP 114/78; PULSE 69; RESP 16; TEMP 98
== END 2023-10-02 15:18 | disposition home or self-care (01) ==
LOC: FINFUSION 14:26 → FM/S 14:27 → FINFUSION 15:18
PROVIDERS: ATTEND Internal Medicine Infectious Disease
DX: E11.628 Type 2 diabetes mellitus with other skin complications (principal); L97.511 Non-pressure chronic ulcer of other part of right foot limited to breakdown of skin
CPT/HCPCS: 96365

== ENCOUNTER 2023-10-03 15:50 | Day surgery (SDC) | payer OTHER ==
[2023-10-03] MEDS: ERTAPENEM SODIUM 1 GM in SODIUM CHLORIDE 50 ML IVPB SCH ×2 (16:15→16:25)
[2023-10-03 16:29] VITALS: RESP 18
[2023-10-03 17:11] VITALS: BP 139/70; PULSE 81; TEMP 97.9
== END 2023-10-03 17:00 | disposition home or self-care (01) ==
LOC: FINFUSION 15:50 → FM/S 15:50 → FINFUSION 17:00
PROVIDERS: ATTEND Internal Medicine Infectious Disease
DX: E11.628 Type 2 diabetes mellitus with other skin complications (principal); L97.511 Non-pressure chronic ulcer of other part of right foot limited to breakdown of skin
CPT/HCPCS: 96365

== ENCOUNTER 2023-10-04 15:26 | Day surgery (SDC) | payer OTHER ==
[2023-10-04] MEDS ORDERED: ERTAPENEM SODIUM 1 GM in SODIUM CHLORIDE 100 ML IVPB ONE (15:45)
[2023-10-04 16:05] VITALS: BP 111/58; RESP 18; TEMP 97.7
[2023-10-04 17:10] VITALS: PULSE 72
== END 2023-10-04 17:00 | disposition home or self-care (01) ==
LOC: FINFUSION 15:26 → FM/S 15:28 → FINFUSION 17:00
PROVIDERS: ATTEND Internal Medicine Infectious Disease
DX: E11.621 Type 2 diabetes mellitus with foot ulcer (principal); L97.511 Non-pressure chronic ulcer of other part of right foot limited to breakdown of skin
CPT/HCPCS: 96365

== ENCOUNTER 2023-10-05 13:58 | Day surgery (SDC) | payer OTHER ==
[2023-10-05] MEDS ORDERED: ERTAPENEM SODIUM 1 GM in SODIUM CHLORIDE 50 ML IVPB ONE (14:45)
[2023-10-05 16:16] VITALS: BP 129/78; PULSE 82; RESP 16; TEMP 98.1
== END 2023-10-05 16:16 | disposition home or self-care (01) ==
LOC: FM/S 13:58 → FINFUSION 13:58
PROVIDERS: ATTEND Internal Medicine Infectious Disease
DX: E11.621 Type 2 diabetes mellitus with foot ulcer (principal); L97.511 Non-pressure chronic ulcer of other part of right foot limited to breakdown of skin
CPT/HCPCS: 96365

== ENCOUNTER 2023-10-06 14:18 | Day surgery (SDC) | payer OTHER ==
[2023-10-06] MEDS ORDERED: ERTAPENEM SODIUM 1 GM in SODIUM CHLORIDE 50 ML IVPB ONE (14:45)
[2023-10-06 15:50] VITALS: BP 120/67; PULSE 81; RESP 18; TEMP 97.8
== END 2023-10-06 15:50 | disposition home or self-care (01) ==
LOC: FM/S 14:18 → FINFUSION 14:18
PROVIDERS: ATTEND Internal Medicine Infectious Disease
DX: E11.621 Type 2 diabetes mellitus with foot ulcer (principal); L97.511 Non-pressure chronic ulcer of other part of right foot limited to breakdown of skin
CPT/HCPCS: 36415; 86140; 96365